=== PATIENT | male | born 1960 | race Caucasian/White ===

== ENCOUNTER 2016-09-29 15:06 | Emergency (ER) | payer SELFPAY ==
[~2016-09-29] VITALS: Ht 182.9 cm; Wt 64.0 kg
[~2016-09-29 15:06] MED LIST: BACT800T5 PO; CEPH500C PO
[2016-09-29 15:08] VITALS: BP 118/71; PULSE 96; RESP 20; TEMP 98.3; O2SAT 99
--- NOTE | 2016-09-29 15:12 | PD ---
Physical Exam Time Seen by Provider: 15:11 Narrative 55 y/o male here with a painful cystic lesion in the suprapubic region for 1 week. Vital signs reviewed. Seen at triage desk. Awaiting bed placement. Data Data Last Documented VS Vital Signs Date Time Temp Pulse Resp B/P Pulse Ox O2 Delivery O2 Flow Rate FiO2 09/29/16 15:08 98.3 96 20 118/71 99 Room Air [facility] Medical Record Reviewed: Yes Supervised Visit with IZABELLA: Edward Coello Sep 29, 2016 15:12
== END 2016-09-29 17:25 | disposition left against medical advice (07) ==
LOC: NED 15:06
DX: L98.9 Disorder of the skin and subcutaneous tissue, unspecified (principal)
CPT/HCPCS: 99281

== ENCOUNTER 2016-10-01 15:02 | Emergency (ER) | payer OTHER ==
[~2016-10-01] VITALS: Ht 167.6 cm; Wt 70.0 kg
[2016-10-01] MEDS ORDERED: LORazepam 2 MG/ML VIAL IM ONE (15:15)
[2016-10-01] MEDS ORDERED: MIDAZOLAM HCL 2 MG/2 ML VIAL IM ONE (15:15)
--- NOTE | 2016-10-01 15:22 | PD ---
HPI Chief Complaint: Psychiatric Symptoms Time Seen by Provider: 15:22 Travel History International Travel<30 days: No Contact w/Intl Traveler<30days: No History of Present Illness HPI 55-year-old male is brought to the emergency department under Mccartney act form suicidal ideations. Per the Mccartney act report the patient cut himself on his left arm and stated that he wanted to . The patient states that his landlord is "getting screwed over by everybody" and this caused him to be very upset which is why he cut himself. The patient is very combative and aggressive and is restrained. Limited history is obtained from the patient. He admits to drinking alcohol daily, states he's had 8 beers today. Denies drug use. PFSH Past Medical History Anxiety: Yes Depression: Yes COPD: Yes (Reports patient.) Diminished Hearing: No Psychiatric: Yes (ANXIETY, DEPRESSION) Immunizations Current: Yes Past Surgical History Eye Surgery: Yes (STRABISMUS CORRECTION) Other Surgery: Yes (partial finger amputations on the left hand) Family History Family Hypercholesterolemia: Yes Social History Alcohol Use: Yes (12 PACK DAY) Tobacco Use: Yes (2PPD + CIGARS) Substance Use: Yes Allergies-Medications (Allergen,Severity, Reaction): Coded Allergies: Codeine (Verified Adverse Reaction, Unknown, Nausea/Vomiting, 09/29/16) MRSA (arm) 09/23/16 Reported Meds & Prescriptions Reported Meds & Active Scripts Active Cephalexin 500 Mg Cap 500 Mg PO Q6H Bactrim DS (Sulfamethoxazole-Trimethoprim) 800-160 Mg Tab 1 Tab PO BID Review of Systems ROS Limitations: Combative, Psychotic Except as stated in HPI: all other systems reviewed are Neg Physical Exam Exam Limitations: Combative, Psychotic Narrative GENERAL: Well-nourished and well-developed patient in no acute distress however is combative. SKIN: Warm and dry. 3 cm laceration to left lateral upper arm. HEAD: Normocephalic and atraumatic. EYES: No injection, drainage, or hyphema noted. PERRLA. EOMI. ENT: No nasal drainage noted. Oropharynx is clear. NECK: Supple and the trachea is midline. CARDIOVASCULAR: Regular rate and rhythm. RESPIRATORY: Breath sounds are equal bilaterally with no accessory muscle use, wheezing, rhonchi, or crackles. GASTROINTESTINAL: Abdomen is soft, non-tender, and nondistended. MUSCULOSKELETAL: No obvious deformities, swelling, cyanosis, or ecchymosis is present throughout the upper and lower extremities. NEUROLOGICAL: Awake, alert, and oriented. Normal speech. Cranial nerves are grossly intact. Data Data Last Documented VS Vital Signs Date Time Temp Pulse Resp B/P Pulse Ox O2 Delivery O2 Flow Rate FiO2 10/01/16 19:46 98.1 81 18 139/95 97 Room Air 10/01/16 15:37 2 Orders Complete Blood Count With Diff (10/01/16 15:14) Comprehensive Metabolic Panel (10/01/16 15:14) Iv Access Insert/Monitor (10/01/16 15:14) Psych Screen (10/01/16 15:14) Drug Screen, Random Urine (10/01/16 15:14) Alcohol (Ethanol) (10/01/16 15:14) Salicylates (Aspirin) (10/01/16 15:14) Tylenol (Acetaminophen) (10/01/16 15:14) Midazolam Inj (Versed Inj) (10/01/16 15:15) Lorazepam Inj (Ativan Inj) (10/01/16 15:15) Ecg Monitoring (10/01/16 15:14) Oximetry (10/01/16 15:14) Lidocai-Epi 1%-1:100,000 Inj (Xylocaine- (10/01/16 15:45) Olanzapine Inj (Zyprexa Inj) (10/01/16 18:00) Diet Regular Basic (10/02/16 Breakfast) Alcohol Withdrawal Asmt-Ciwa ONCE (10/01/16 19:54) Flumazenil Inj (Romazicon Inj) (10/01/16 20:00) Lorazepam (Ativan) (10/01/16 20:00) Lorazepam Inj (Ativan Inj) (10/01/16 20:00) Lorazepam (Ativan) (10/01/16 20:00) Lorazepam Inj (Ativan Inj) (10/01/16 20:00) Lorazepam Inj (Ativan Inj) (10/01/16 20:00) Lorazepam Inj (Ativan Inj) (10/01/16 20:00) Labs Laboratory Tests Test 10/01/16 15:45 White Blood Count 15.4 TH/MM3 Red Blood Count 5.11 MIL/MM3 Hemoglobin 15.0 GM/DL Hematocrit 45.8 % Mean Corpuscular Volume 89.6 FL Mean Corpuscular Hemoglobin 29.4 PG Mean Corpuscular Hemoglobin 32.8 % Concent Red Cell Distribution Width 14.6 % Platelet Count 350 TH/MM3 Mean Platelet Volume 8.1 FL Neutrophils (%) (Auto) 51.7 % Lymphocytes (%) (Auto) 43.2 % Monocytes (%) (Auto) 3.1 % Eosinophils (%) (Auto) 1.3 % Basophils (%) (Auto) 0.7 % Neutrophils # (Auto) 8.0 TH/MM3 Lymphocytes # (Auto) 6.7 TH/MM3 Monocytes # (Auto) 0.5 TH/MM3 Eosinophils # (Auto) 0.2 TH/MM3 Basophils # (Auto) 0.1 TH/MM3 CBC Comment AUTO DIFF Differential Total Cells 100 Counted Neutrophils % (Manual) 52 % Band Neutrophils % 1 % Lymphocytes % 42 % Monocytes % 2 % Eosinophils % 2 % Basophils % 1 % Neutrophils # (Manual) 8.2 TH/MM3 Differential Comment FINAL DIFF MANUAL Platelet Estimate NORMAL Platelet Morphology Comment NORMAL Sodium Level 142 MEQ/L Potassium Level 4.3 MEQ/L Chloride Level 110 MEQ/L Carbon Dioxide Level 18.8 MEQ/L Anion Gap 13 MEQ/L Blood Urea Nitrogen 6 MG/DL Creatinine 0.92 MG/DL Estimat Glomerular Filtration 86 ML/MIN Rate Random Glucose 79 MG/DL Calcium Level 9.2 MG/DL Total Bilirubin 0.2 MG/DL Aspartate Amino Transf 31 U/L (AST/SGOT) Alanine Aminotransferase 27 U/L (ALT/SGPT) Alkaline Phosphatase 66 U/L Total Protein 8.1 GM/DL Albumin 4.4 GM/DL Salicylates Level 5.5 MG/DL Acetaminophen Level LESS THAN 2.0 MCG/ML Ethyl Alcohol Level 300 MG/DL [facility] Medical Decision Making Medical Screen Exam Complete: Yes Emergency Medical Condition: Yes Differential Diagnosis Differential: Depression versus adjustment reaction versus anxiety versus PTSD versus psychosis NOS versus mood disorder NOS versus substance induced mood disorder versus ODD versus adjustment reaction versus schizophrenia versus bipolar disorder versus schizoaffective versus electrolyte abnormality Narrative Course Patient presents under a Mccartney act. Vital signs within normal limits. Patient has a small self-inflicted laceration to his left upper arm. Psych screen has been ordered. Patient is restrained as he is combative. Per the recommendation of my attending physician he is administered Versed 2 mg IM and Ativan 2 mg IM. CBC shows elevated white blood cell count, likely stress reaction. CMP is unremarkable. Salicylate and Tylenol levels within normal limits. EtOH is 300. Laceration repairs performed, see procedure narrative. The patient is medically clear for psychiatric evaluation and disposition. I discussed the case with my attending physician Dr. Pearson who is aware of the patients history, physical examination findings, and treatment plan. Procedures Procedure Narrative LACERATION LOCATION: left arm LENGTH: 3 cm NUMBER OF STITCHES/WENCESLAO: 8 wenceslao REPAIR: The area of the laceration was prepped with Betadine and sterilely draped. The laceration was infiltrated with 1% lidocaine with epinephrine. The wound was copiously irrigated and explored without evidence of foreign body , tendon injury or neurovascular injury. The wound was closed using wenceslao. This was a single layer repair. A sterile dressing was applied. The patient was advised to keep the dressing clean and dry. Patient tolerated the procedure well. Diagnosis Primary Impression: Alcohol-induced mood disorder Additional Impressions: Self-mutilation Arm laceration Qualified Code: S41.112A - Arm laceration, left, initial encounter Additional Instructions: Have wenceslao removed in 7 days. Marge Saleh Oct 01, 2016 15:22
[2016-10-01 15:35] VITALS: BP 185/88; PULSE 76; RESP 18; TEMP 98.2; O2SAT 99
[2016-10-01 15:37] VITALS: O2SAT 97
[2016-10-01] MEDS ORDERED: LIDOCAINE 1%/EPINEPHrine 1:100,000 SOLN 20 ML VIAL INFIL ONE (15:45)
[2016-10-01 16:12] LABS: BASOPHIL # 0.1 TH/MM3 (0-0.2); BASOPHIL % 0.7 % (0.0-2.0); EOSINOPHIL # 0.2 TH/MM3 (0-0.4); EOSINOPHIL % 1.3 % (0.0-4.0); HEMATOCRIT 45.8 % (39.0-51.0); LYMPH % 43.2 % (9.0-44.0); LYMPHOCYTE # 6.7 TH/MM3 (1.0-4.8); MEAN CELL VOLUME 89.6 FL (80.0-100.0); MEAN CORPUSCULAR HEMOGLOBIN 29.4 PG (27.0-34.0); MEAN CORPUSCULAR HGB CONC 32.8 % (32.0-36.0); MONO % 3.1 % (0.0-8.0); NEUT % 51.7 % (16.0-70.0); PLATELET COUNT 350 TH/MM3 (150-450); RED BLOOD COUNT 5.11 MIL/MM3 (4.50-5.90); RED CELL DISTRIBUTION WIDTH 14.6 % (11.6-17.2); WHITE BLOOD COUNT 15.4 TH/MM3 (4.0-11.0)
[2016-10-01 16:14] LABS: HEMO FLAGS AUTO DIFF
[2016-10-01 16:25] LABS: ALKALINE PHOSPHATASE 66 U/L (45-117); TOTAL BILIRUBIN ADULT 0.2 MG/DL (0.2-1.0)
[2016-10-01 16:37] LABS: ALT (GPT) 27 U/L (12-78); ANION GAP 13 MEQ/L (5-15); AST (GOT) 31 U/L (15-37); BICARBONATE 18.8 MEQ/L (21.0-32.0); BLOOD UREA NITROGEN 6 MG/DL (7-18); CHLORIDE 110 MEQ/L (98-107); GLOMERULAR FILTRATION RATE 86 ML/MIN (>89); POTASSIUM 4.3 MEQ/L (3.5-5.1); SODIUM (NA) 142 MEQ/L (136-145)
[2016-10-01 16:38] LABS: ACETAMINOPHEN LESS THAN 2.0 MCG/ML (10.0-30.0)
[2016-10-01 16:50] LABS: BANDS 1 % (0-6); BASOPHILS 1 % (0-2); EOSINOPHILS 2 % (0-4); NEUTROPHIL # MANUAL DIFF 8.2 TH/MM3 (1.8-7.7); POLYS (SEG NEUTROPHILS) 52 % (16-70); WBC DIFF SAMPLE 100
[2016-10-01 16:51] LABS: SCAN/DIFF FINAL DIFF MANUAL
[2016-10-01 16:52] LABS: PLATELET ESTIMATE SMEAR NORMAL (NORMAL); PLATELET MORPHOLOGY NORMAL (NORMAL)
[2016-10-01] MEDS ORDERED: OLANZapine IM 10 MG VIAL IM ONE (18:00)
[2016-10-01 19:04] VITALS: BP 141/67; PULSE 62; RESP 18; O2SAT 98
[2016-10-01 19:46] VITALS: BP 139/95; PULSE 81; RESP 18; TEMP 98.1; O2SAT 97
[2016-10-01] MEDS ORDERED: LORazepam 2 MG/ML VIAL IV PUSH PRN ×4 (20:00)
[2016-10-01] MEDS ORDERED: FLUMAZENIL 0.5 MG/5 ML VIAL IV PUSH PRN (20:00)
[2016-10-01] MEDS ORDERED: LORazepam 2 MG TAB PO PRN (20:00)
[2016-10-01] MEDS ORDERED: LORazepam 1 MG TAB PO PRN (20:00)
[2016-10-01 21:15] LABS: AMPHETAMINE, URINE NEG (NEG); BARBITURATES, URINE NEG (NEG); COCAINE, URINE NEG (NEG)
[2016-10-01 22:05] VITALS: BP 115/73; PULSE 100; RESP 18; O2SAT 99
[2016-10-02 06:08] VITALS: BP 148/80; PULSE 79; RESP 19; O2SAT 97
--- NOTE | 2016-10-02 12:25 | PD ---
History of Present Illness Chief Complaint: Psychiatric Symptoms Time Seen by Provider: 12:00 Travel History International Travel<30 Days: No Contact w/Intl Traveler<30days: No Known affected area: No Legal Status Legal Status: Mccartney Act Mccartney Act Signed By: Jeremy Curtis History of Present Illness: History of Present Illness HPI 55-year-old male with a self reported history of anxiety and depression, personality disorder, hx of self mutilation as well as alcohol abuse who is brought to the emergency department under Mccartney act initiated by RONNI . Per the Mccartney act report the patient cut himself on his left arm and stated that he wanted to . The patient was very combative and aggressive when he arrived and required ETO and restraints . ETOH on admission was 300 and positive toxicology for benzos. Patient was later monitored in J pod and he presented no behavioral concerns and no suicidality. Patient is seen in J pod with nurse Todd. Awake, alert, oriented. He is clinically sober. His speech is clear and logical. There is no kelsie and no hypomania. There is no psychosis. He denies suicidal ideation, intent or plan. States " I was intoxicated and I ran my mouth. I do that . I say what I think. I said something stupid. He denies he cut himself to kill himself and further states " this is body art ". He also tells me that he went to [facility] and was prescribed medication but " I am not taking any medication because I don't need it". PFS Past Medical History Anxiety: Yes Depression: Yes COPD: Yes (Reports patient.) Diminished Hearing: No Psychiatric: Yes (ANXIETY, DEPRESSION) Immunizations Current: Yes Past Surgical History Eye Surgery: Yes (STRABISMUS CORRECTION) Other Surgery: Yes (partial finger amputations on the left hand) Psychiatric History Psychiatric History Hx Psychiatric Treatment: Hx of depression and anxiety AND etoh. Patient with prior inpatient treatment in [place], 2015 and [facility]. Admitted to [facility] in 2012. History of Inpatient Treatment: Yes Guns or firearms in home: No Social History Single male. Homeless. Born in [place]. has been in [place] since 2013. Hx Alcohol Use: Yes (12 PACK DAY) Hx Tobacco Use: Yes (2PPD + CIGARS) Hx Substance Use: Yes (alcohol abuse) Substance Use Type: Alcohol, Marijuana, Nicotine/Cigarettes Other Substances Used: 12 PPD Hx of Substance Use Treatment: Yes Family Psychiatric History Negative Allergies-Medications (Allergen,Severity, Reaction): Coded Allergies: Codeine (Verified Adverse Reaction, Unknown, Nausea/Vomiting, 09/29/16) MRSA (arm) 09/23/16 Reported Meds & Prescriptions Reported Meds & Active Scripts Active Cephalexin 500 Mg Cap 500 Mg PO Q6H Bactrim DS (Sulfamethoxazole-Trimethoprim) 800-160 Mg Tab 1 Tab PO BID Review of Systems Except as stated in HPI: all other systems reviewed are Neg Exam Alert: Yes [place]: Person (ox4) Mood: Agitated, Calm Affect: Appropriate Speech: Clear, Logical Eye Contact: Normal Memory Intact: Comment (No impairmetn) Hallucinations: Other (negative) Delusions: No Suicidal: Ideation (Denies any) Homicidal: Ideation (Deneis any) Insight/Judgement Poor. Poor MDM Medical Decision Making Medical Record Reviewed: Yes Assessment/Plan 55 year old male with hx of substance use who in context of intoxication cut his left arm. At the time the patient verbalized he was suicidal as well as threatened the deputies. At thsi time he is clincially sober and he deneis any suidal or homicidal ideation, intent or plan. he is not imminent risk of hurting self or others although a chronic risk does exist due to his substance abuse. At this time the patient will be released. Psychoeducation is provided. Orders Complete Blood Count With Diff (10/01/16 15:14) Comprehensive Metabolic Panel (10/01/16 15:14) Iv Access Insert/Monitor (10/01/16 15:14) Psych Screen (10/01/16 15:14) Drug Screen, Random Urine (10/01/16 15:14) Alcohol (Ethanol) (10/01/16 15:14) Salicylates (Aspirin) (10/01/16 15:14) Tylenol (Acetaminophen) (10/01/16 15:14) Midazolam Inj (Versed Inj) (10/01/16 15:15) Lorazepam Inj (Ativan Inj) (10/01/16 15:15) Ecg Monitoring (10/01/16 15:14) Oximetry (10/01/16 15:14) Lidocai-Epi 1%-1:100,000 Inj (Xylocaine- (10/01/16 15:45) Olanzapine Inj (Zyprexa Inj) (10/01/16 18:00) Diet Regular Basic (10/02/16 Breakfast) Alcohol Withdrawal Asmt-Ciwa ONCE (10/01/16 19:54) Flumazenil Inj (Romazicon Inj) (10/01/16 20:00) Lorazepam (Ativan) (10/01/16 20:00) Lorazepam Inj (Ativan Inj) (10/01/16 20:00) Lorazepam (Ativan) (10/01/16 20:00) Lorazepam Inj (Ativan Inj) (10/01/16 20:00) Lorazepam Inj (Ativan Inj) (10/01/16 20:00) Lorazepam Inj (Ativan Inj) (10/01/16 20:00) Results Vital Signs Date Time Temp Pulse Resp B/P Pulse Ox O2 Delivery O2 Flow Rate FiO2 10/02/16 06:08 79 19 148/80 97 Room Air 10/01/16 22:05 100 18 115/73 99 Room Air 10/01/16 19:46 98.1 81 18 139/95 97 Room Air 10/01/16 19:04 62 18 141/67 98 Room Air 10/01/16 15:47 18 10/01/16 15:37 97 Nasal Cannula 2 10/01/16 15:35 98.2 76 18 185/88 99 Laboratory Tests Test 10/01/16 10/01/16 15:45 20:05 White Blood Count 15.4 Red Blood Count 5.11 Hemoglobin 15.0 Hematocrit 45.8 Mean Corpuscular Volume 89.6 Mean Corpuscular Hemoglobin 29.4 Mean Corpuscular Hemoglobin 32.8 Concent Red Cell Distribution Width 14.6 Platelet Count 350 Mean Platelet Volume 8.1 Neutrophils (%) (Auto) 51.7 Lymphocytes (%) (Auto) 43.2 Monocytes (%) (Auto) 3.1 Eosinophils (%) (Auto) 1.3 Basophils (%) (Auto) 0.7 Neutrophils # (Auto) 8.0 Lymphocytes # (Auto) 6.7 Monocytes # (Auto) 0.5 Eosinophils # (Auto) 0.2 Basophils # (Auto) 0.1 CBC Comment AUTO DIFF Differential Total Cells 100 Counted Neutrophils % (Manual) 52 Band Neutrophils % 1 Lymphocytes % 42 Monocytes % 2 Eosinophils % 2 Basophils % 1 Neutrophils # (Manual) 8.2 Differential Comment FINAL DIFF MANUAL Platelet Estimate NORMAL Platelet Morphology Comment NORMAL Sodium Level 142 Potassium Level 4.3 Chloride Level 110 Carbon Dioxide Level 18.8 Anion Gap 13 Blood Urea Nitrogen 6 Creatinine 0.92 Estimat Glomerular Filtration 86 Rate Random Glucose 79 Calcium Level 9.2 Total Bilirubin 0.2 Aspartate Amino Transf 31 (AST/SGOT) Alanine Aminotransferase 27 (ALT/SGPT) Alkaline Phosphatase 66 Total Protein 8.1 Albumin 4.4 Salicylates Level 5.5 Acetaminophen Level LESS THAN 2.0 Ethyl Alcohol Level 300 Urine Opiates Screen NEG Urine Barbiturates Screen NEG Urine Amphetamines Screen NEG Urine Benzodiazepines Screen POS Urine Cocaine Screen NEG Urine Cannabinoids Screen NEG Diagnosis Primary Impression: Alcohol-induced mood disorder Additional Impressions: Arm laceration Self-mutilation Additional Instructions: Have wenceslao removed in 7 days. Med/ Other Pt Specific Info: No Meds Exist/No RX given Disposition: 01 DISCHARGE HOME Condition: Stable Problem Qualifiers Additional Impressions: Arm laceration Qualified Code: S41.112A - Arm laceration, left, initial encounter Sunshine Newman [facility] Oct 02, 2016 12:24
== END 2016-10-02 13:21 | disposition home or self-care (01) ==
LOC: NEPD 15:02 → NEPJ 10-02 13:21
DX: S41.112A Laceration without foreign body of left upper arm, initial encounter (principal); F39 Unspecified mood [affective] disorder; F10.129 Alcohol abuse with intoxication, unspecified; F41.9 Anxiety disorder, unspecified; F32.9 Major depressive disorder, single episode, unspecified; J44.9 Chronic obstructive pulmonary disease, unspecified; F17.210 Nicotine dependence, cigarettes, uncomplicated; F17.290 Nicotine dependence, other tobacco product, uncomplicated; X78.9XXA Intentional self-harm by unspecified sharp object, initial encounter
CPT/HCPCS: 12002; 80053; 80307; 85007; 85027; 96372; 99284; J2060

== ENCOUNTER 2016-10-05 03:18 | Inpatient (IN) | payer SELFPAY ==
[~2016-10-05] VITALS: Ht 180.3 cm; Wt 68.3 kg
[2016-10-05] VITALS (10 sets, daily range): BP systolic 99–142; BP diastolic 55–87; PULSE 60–79; RESP 18–20; TEMP 97.9–98.9; O2SAT 96–100
[2016-10-05] MEDS ORDERED: SODIUM CHLORIDE 0.9% FLUSH 10 ML FLUSH IVF PRN (03:30)
--- NOTE | 2016-10-05 03:33 | PD ---
HPI Chief Complaint: intentional overdose Time Seen by Provider: 03:30 Travel History International Travel<30 days: No Contact w/Intl Traveler<30days: No History of Present Illness HPI Patient comes in under a Mccartney act by police for intentional ingestion of Seroquel. Patient states he took twenty-three 300 mg tablets of lithium with the intention to kill himself. Patient states he took a 11 the other night to go to sleep. Patient denies feeling homicidal or suicidal currently. Denies any medical complaints. Denies any chest pain, shortness of breath, nausea, or abdominal pain. PFSH Past Medical History Anxiety: Yes Depression: Yes COPD: Yes (Reports patient.) Diminished Hearing: No Psychiatric: Yes (ANXIETY, DEPRESSION) Immunizations Current: Yes Past Surgical History Eye Surgery: Yes (STRABISMUS CORRECTION) Other Surgery: Yes (partial finger amputations on the left hand) Family History Family Hypercholesterolemia: Yes Social History Alcohol Use: Yes (12 PACK DAY) Tobacco Use: Yes (2PPD + CIGARS) Substance Use: Yes (alcohol abuse) Allergies-Medications (Allergen,Severity, Reaction): Coded Allergies: Codeine (Verified Adverse Reaction, Unknown, Nausea/Vomiting, 09/29/16) MRSA (arm) 09/23/16 Reported Meds & Prescriptions Reported Meds & Active Scripts Active Cephalexin 500 Mg Cap 500 Mg PO Q6H Bactrim DS (Sulfamethoxazole-Trimethoprim) 800-160 Mg Tab 1 Tab PO BID Review of Systems Except as stated in HPI: all other systems reviewed are Neg Physical Exam Narrative GENERAL: Well-developed, under nourished, in no acute distress, and non-ill appearing. SKIN: Focused skin assessment warm and dry. HEAD: Atraumatic. Normocephalic. EYES: Pupils equal and round. EOMI. No scleral icterus. No injection or drainage. ENT: No nasal bleeding or discharge. Mucous membranes pink and moist. NECK: Trachea midline. Supple. No nuclear rigidity. CARDIOVASCULAR: Regular rate and rhythm. No murmur appreciated. RESPIRATORY: No accessory muscle use. No respiratory distress. Clear to auscultation. Breath sounds equal bilaterally. MUSCULOSKELETAL: No obvious deformities. No clubbing. No cyanosis. No edema. Full range of motion. NEUROLOGICAL: Awake and alert. No obvious cranial nerve deficits. Motor grossly within normal limits. Normal speech. PSYCHIATRIC: Appropriate mood and affect; insight and judgment abnormal. Data Data Last Documented VS Vital Signs Date Time Temp Pulse Resp B/P Pulse Ox O2 Delivery O2 Flow Rate FiO2 10/05/16 03:43 97.9 65 20 103/62 98 Orders Complete Blood Count With Diff (10/05/16 03:26) Comprehensive Metabolic Panel (10/05/16 03:26) Electrocardiogram (10/05/16 03:26) Oximetry (10/05/16 03:26) Iv Access Insert/Monitor (10/05/16 03:26) Ecg Monitoring (10/05/16 03:26) Psych Screen (10/05/16 03:26) Sodium Chloride 0.9% Flush (Ns Flush) (10/05/16 03:30) Drug Screen, Random Urine (10/05/16 03:26) Alcohol (Ethanol) (10/05/16 03:26) Salicylates (Aspirin) (10/05/16 03:26) Tylenol (Acetaminophen) (10/05/16 03:26) Call Poison Control (10/05/16 03:26) [place] (Li) (10/05/16 03:37) MDM Medical Decision Making Medical Screen Exam Complete: Yes Emergency Medical Condition: Yes Differential Diagnosis Homicidal, suicidal, intentional overdose, lithium intoxication, other Narrative Course Patient was seen and examined. Initial laboratory studies and EKG were ordered. 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 Patient is transferred to medical pod and care was transferred to Dr. Blake. Please see her documentation for final diagnosis and disposition. Isidro Marie Oct 05, 2016 03:33
[2016-10-05] MEDS ORDERED: LITH300C2 PO (03:57)
[2016-10-05] MEDS ORDERED: SERO100T PO (03:57)
[2016-10-05 04:21] LABS: AUTOMATED NEUTROPHIL # 8.1 TH/MM3 (1.8-7.7); BASOPHIL # 0.1 TH/MM3 (0-0.2); BASOPHIL % 0.8 % (0.0-2.0); EOSINOPHIL # 0.5 TH/MM3 (0-0.4); EOSINOPHIL % 4.3 % (0.0-4.0); HEMATOCRIT 38.7 % (39.0-51.0); HEMO FLAGS DIFF FINAL; LYMPH % 25.1 % (9.0-44.0); LYMPHOCYTE # 3.2 TH/MM3 (1.0-4.8); MEAN CELL VOLUME 89.5 FL (80.0-100.0); MEAN CORPUSCULAR HEMOGLOBIN 30.6 PG (27.0-34.0); MEAN CORPUSCULAR HGB CONC 34.2 % (32.0-36.0); MONO % 6.2 % (0.0-8.0); NEUT % 63.6 % (16.0-70.0); PLATELET COUNT 264 TH/MM3 (150-450); RED BLOOD COUNT 4.32 MIL/MM3 (4.50-5.90); RED CELL DISTRIBUTION WIDTH 14.5 % (11.6-17.2); WHITE BLOOD COUNT 12.7 TH/MM3 (4.0-11.0)
[2016-10-05] MEDS ORDERED: SODIUM CHLOR 0.9% 1000 ML INJ 1,000 ML IV ONE (04:45)
[2016-10-05 04:49] LABS: ALT (GPT) 25 U/L (12-78); ANION GAP 6 MEQ/L (5-15); AST (GOT) 28 U/L (15-37); BICARBONATE 21.7 MEQ/L (21.0-32.0); BLOOD UREA NITROGEN 10 MG/DL (7-18); CHLORIDE 110 MEQ/L (98-107); GLOMERULAR FILTRATION RATE 82 ML/MIN (>89); POTASSIUM 3.6 MEQ/L (3.5-5.1); SODIUM (NA) 138 MEQ/L (136-145)
[2016-10-05 04:52] LABS: ACETAMINOPHEN LESS THAN 2.0 MCG/ML (10.0-30.0); ALKALINE PHOSPHATASE 75 U/L (45-117); TOTAL BILIRUBIN ADULT 0.3 MG/DL (0.2-1.0)
[2016-10-05] MEDS ORDERED: ONDANSETRON HCL 4 MG/2 ML VIAL ONE (05:04)
[2016-10-05] MEDS ORDERED: ONDANSETRON HCL 4 MG/2 ML VIAL IV PUSH ONE (05:45)
[2016-10-05] MEDS ORDERED: LORazepam 2 MG/ML VIAL IV PUSH PRN ×4 (06:00)
[2016-10-05] MEDS ORDERED: BISACODYL 10 MG SUPP RECTAL PRN (06:00)
[2016-10-05] MEDS ORDERED: ACETAMINOPHEN 325 MG TAB PO PRN ×2 (06:00→12:45)
[2016-10-05] MEDS ORDERED: ONDANSETRON HCL 4 MG/2 ML VIAL IVP PRN (06:00)
[2016-10-05] MEDS ORDERED: SODIUM CHLORIDE 0.9% FLUSH 10 ML FLUSH IV FLUSH PRN ×2 (06:00→12:45)
[2016-10-05] MEDS ORDERED: SENNOSIDES 8.6 MG TAB PO PRN (06:00)
[2016-10-05] MEDS ORDERED: MAGNESIUM HYDROXIDE SUSP 30 ML CUP PO PRN (06:00)
[2016-10-05] MEDS ORDERED: LACTULOSE SYRUP 20 GM/30 ML CUP PO PRN (06:00)
[2016-10-05] MEDS ORDERED: LORazepam 1 MG TAB PO PRN (06:00)
[2016-10-05] MEDS ORDERED: LORazepam 2 MG TAB PO PRN (06:00)
[2016-10-05] MEDS ORDERED: FLUMAZENIL 0.5 MG/5 ML VIAL IV PUSH PRN (06:00)
[2016-10-05] MEDS ORDERED: HALOPERIDOL LACTATE 5 MG/ML AMP IM PRN (06:00)
--- NOTE | 2016-10-05 06:01 | PD ---
Data Data Last Documented VS Vital Signs Date Time Temp Pulse Resp B/P Pulse Ox O2 Delivery O2 Flow Rate FiO2 10/05/16 05:18 79 18 99/62 99 Room Air 10/05/16 03:43 97.9 Orders Complete Blood Count With Diff (10/05/16 03:26) Comprehensive Metabolic Panel (10/05/16 03:26) Electrocardiogram (10/05/16 03:26) Oximetry (10/05/16 03:26) Iv Access Insert/Monitor (10/05/16 03:26) Ecg Monitoring (10/05/16 03:26) Psych Screen (10/05/16 03:26) Sodium Chloride 0.9% Flush (Ns Flush) (10/05/16 03:30) Drug Screen, Random Urine (10/05/16 03:26) Alcohol (Ethanol) (10/05/16 03:26) Salicylates (Aspirin) (10/05/16 03:26) Tylenol (Acetaminophen) (10/05/16 03:26) Call Poison Control (10/05/16 03:26) [place] (Li) (10/05/16 03:37) Sodium Chlor 0.9% 1000 Ml Inj (Ns 1000 M (10/05/16 04:45) Ondansetron Inj (Zofran Inj) (10/05/16 05:04) Ondansetron Inj (Zofran Inj) (10/05/16 05:45) Admit Order (Ed Use Only) (10/05/16 05:53) Labs Laboratory Tests Test 10/05/16 04:01 White Blood Count 12.7 TH/MM3 Red Blood Count 4.32 MIL/MM3 Hemoglobin 13.2 GM/DL Hematocrit 38.7 % Mean Corpuscular Volume 89.5 FL Mean Corpuscular Hemoglobin 30.6 PG Mean Corpuscular Hemoglobin 34.2 % Concent Red Cell Distribution Width 14.5 % Platelet Count 264 TH/MM3 Mean Platelet Volume 7.9 FL Neutrophils (%) (Auto) 63.6 % Lymphocytes (%) (Auto) 25.1 % Monocytes (%) (Auto) 6.2 % Eosinophils (%) (Auto) 4.3 % Basophils (%) (Auto) 0.8 % Neutrophils # (Auto) 8.1 TH/MM3 Lymphocytes # (Auto) 3.2 TH/MM3 Monocytes # (Auto) 0.8 TH/MM3 Eosinophils # (Auto) 0.5 TH/MM3 Basophils # (Auto) 0.1 TH/MM3 CBC Comment DIFF FINAL Differential Comment Sodium Level 138 MEQ/L Potassium Level 3.6 MEQ/L Chloride Level 110 MEQ/L Carbon Dioxide Level 21.7 MEQ/L Anion Gap 6 MEQ/L Blood Urea Nitrogen 10 MG/DL Creatinine 0.96 MG/DL Estimat Glomerular Filtration 82 ML/MIN Rate Random Glucose 93 MG/DL Calcium Level 8.6 MG/DL Total Bilirubin 0.3 MG/DL Aspartate Amino Transf 28 U/L (AST/SGOT) Alanine Aminotransferase 25 U/L (ALT/SGPT) Alkaline Phosphatase 75 U/L Total Protein 6.6 GM/DL Albumin 3.4 GM/DL Salicylates Level 4.7 MG/DL Acetaminophen Level LESS THAN 2.0 MCG/ML [place] Level 2.8 MEQ/L Ethyl Alcohol Level 116 MG/DL MDM Supervised Visit with IZABELLA: Yes Narrative Course I, Dr. Blake, have reviewed the advance practice practioner's documentation and am in agreement, met with the patient face to face, made the diagnosis, and the medical decision making was done by me. *My assessment and Findings: 55-year-old male here under Mccartney act after intentional overdose. Sometime this evening, exactly unclear on the time patient reportedly took 23 tablets of lithium and an attempt to kill himself. Patient has on his person a bottle of lithium 300 mg #60, this bottle is empty. He also has a bottle of Seroquel 100 mg #60 with 23 tablets missing. Patient states he feels slightly nauseous, but denies any abdominal pain, diarrhea. Neurologically he is intact and he denies any chest pain, shortness of breath or palpitations. Concern for lithium overdose, Seroquel overdose, ingestion, alcohol intoxication, arrhythmia, seizure, suicide attempt. Twelve-lead EKG shows sinus rhythm without notable ST or T-wave abnormalities and normal intervals. QRS 84, QTC 456. Laboratory workup notable for blood alcohol level 116. [place] level elevated at 2.8. At this time again he does not have any evidence of clinical intoxication except nausea. He was given Zofran to help with this. Poison control consulted and agrees with every 4 hours EKG, lithium level, BMP use until downtrending 2. Patient will be admitted for further management and ultimate psychiatry consultation. Critical Care Narrative Aggregate critical care time was 40 minutes. Time to perform other separately billable procedures was not included in the critical care time. My time did not include minutes spent treating any other patients simultaneously or on activities that did not directly contribute to the patient's treatment. The services I provided to this patient were to treat and/or prevent clinically significant deterioration that could result in: Neurologic decompensation, cardiopulmonary decompensation, , disability I provided critical care services requiring my management, as noted below: Chart data review, documentation time, medication orders and management, vital sign assessments/reviewing monitor data, ordering and reviewing lab tests, ordering and interpreting/reviewing x-rays and diagnostic studies, care of the patient and discussion of the patient with the admitting physicians. Diagnosis Primary Impression: Intentional lithium overdose Qualified Code: T56.892A - Intentional lithium overdose, initial encounter Additional Impressions: Alcohol intoxication Qualified Code: F10.920 - Alcohol intoxication, uncomplicated Suicide attempt Admitting Information Admitting Physician Requests: it Ayesha Blake MD Oct 05, 2016 06:01
[2016-10-05 06:06] LABS: AMPHETAMINE, URINE NEG (NEG); BARBITURATES, URINE NEG (NEG); COCAINE, URINE NEG (NEG)
--- NOTE | 2016-10-05 06:20 | HHI.HP ---
HPI Service [facility] Primary Care Physician Unknown Admission Diagnosis lithium overdose, alcohol intoxication Diagnoses: (1) Intentional lithium overdose Diagnosis: Principal (2) Suicide attempt Diagnosis: Principal (3) Alcohol abuse Diagnosis: Principal (4) Leukocytosis Diagnosis: Principal (5) Dehydration Diagnosis: Principal Travel History International Travel<30 Days: No Contact w/Intl Traveler <30 Da: No Traveled to Known Affected Are: No History of Present Illness This is a 55-year-old male with PMH of Anxiety, Depression, COPD, Alcohol Abuse and Tobacco Abuse who was brought to the ER under [place] secondary to intentional lithium overdose in suicide attempt. Per patient, he took approximately 23 tablets of [place] 300mg at approx 11pm last evening. Also found to have missing Seroquel 100mg tablets, however denies ingestion. No c/o chest pain or SOB. On arrival, BP 103/62, HR 65, O2 sat 98% on RA, Afebrile. Recent ER presentation on 10/01/16 w/ suicidal ideation and self mutilation under [place], s/p eval by Psych w/ d/c home. Returns now w/ intentional ingestion. WBC 12.7. Chemistry essentially unremarkable except for GFR 82. Urine Drug Screen pending. [place] 2.8. Alcohol 116. Poison Control contacted , recommended q4h [place] levels. Review of Systems Except as stated in HPI: all other systems reviewed are Neg ROS: 14 point review of systems otherwise negative. Past Family Social History Past Medical History PMH: Anxiety, Depression, COPD, Alcohol Abuse and Tobacco Abuse Past Surgical History PAST SURGICAL HISTORY: Partial Finger Amputation Left Hand Allergies: Coded Allergies: Codeine (Verified Adverse Reaction, Unknown, Nausea/Vomiting, 10/05/16) MRSA (arm) 09/23/16 Family History PAST FAMILY HISTORY: Reviewed. No h/o DM or CAD Social History PAST SOCIAL HISTORY: Drinks 12-14 beers/day. Smokes 2ppd. Negative for drugs. Physical Exam Vital Signs Vital Signs Date Time Temp Pulse Resp B/P Pulse Ox O2 Delivery O2 Flow Rate FiO2 10/05/16 05:18 79 18 99/62 99 Room Air 10/05/16 03:43 97.9 65 20 103/62 98 Physical Exam PE: GENERAL: Middle-aged white male in no acute distress. HEENT: PERRLA, EOMI. No scleral icterus or conjunctival pallor. No lid lag or facial droop. CARDIOVASCULAR: Regular rate and rhythm. No obvious murmurs to auscultation. No chest tenderness to palpation. RESPIRATORY: No obvious rhonchi or wheezing. Clear to auscultation. Breath sounds equal bilaterally. GASTROINTESTINAL: Abdomen soft, non-tender, nondistended. BS normal. MUSCULOSKELETAL: Extremities without clubbing, cyanosis, or edema. No obvious deformities. NEUROLOGICAL: Awake, alert and oriented x4. No focal neurologic deficits. Moving both upper and lower extremities spontaneously. Laboratory Laboratory Tests Test 10/05/16 04:01 White Blood Count 12.7 Red Blood Count 4.32 Hemoglobin 13.2 Hematocrit 38.7 Mean Corpuscular Volume 89.5 Mean Corpuscular Hemoglobin 30.6 Mean Corpuscular Hemoglobin 34.2 Concent Red Cell Distribution Width 14.5 Platelet Count 264 Mean Platelet Volume 7.9 Neutrophils (%) (Auto) 63.6 Lymphocytes (%) (Auto) 25.1 Monocytes (%) (Auto) 6.2 Eosinophils (%) (Auto) 4.3 Basophils (%) (Auto) 0.8 Neutrophils # (Auto) 8.1 Lymphocytes # (Auto) 3.2 Monocytes # (Auto) 0.8 Eosinophils # (Auto) 0.5 Basophils # (Auto) 0.1 CBC Comment DIFF FINAL Differential Comment Sodium Level 138 Potassium Level 3.6 Chloride Level 110 Carbon Dioxide Level 21.7 Anion Gap 6 Blood Urea Nitrogen 10 Creatinine 0.96 Estimat Glomerular Filtration 82 Rate Random Glucose 93 Calcium Level 8.6 Total Bilirubin 0.3 Aspartate Amino Transf 28 (AST/SGOT) Alanine Aminotransferase 25 (ALT/SGPT) Alkaline Phosphatase 75 Total Protein 6.6 Albumin 3.4 Salicylates Level 4.7 Acetaminophen Level LESS THAN 2.0 [place] Level 2.8 Ethyl Alcohol Level 116 Result Diagram: 10/05/1640010/05/16400 Assessment and Plan Problem List: (1) Intentional lithium overdose ICD Code: T56.892A Status: Acute (2) Suicide attempt ICD Code: T14.91 Status: Acute (3) Leukocytosis ICD Code: D72.829 Status: Acute (4) Dehydration ICD Code: E86.0 Status: Acute (5) Alcohol abuse ICD Code: F10.10 Status: Acute (6) Tobacco abuse ICD Code: Z72.0 Status: Acute Assessment and Plan A/P: 1. Intentional [place] Overdose: reports taking 23 tablets of [place] 300mg at approx 11pm last evening, [place] 2.8. EKG w/ no acute changes. Poison Control contacted by ER physician, recommended q4h [place] levels, ordered. Telemetry. 2. Suicide Attempt: Intentional OD in Suicide Attempt, currently under [place]. Recent ER presentation 10/01/16 w/ Suicidal Ideation and Self Mutilation under [place], s/p eval by Psych w/ d/c home. Sitter, Consult Psych for further eval. 3. Leukocytosis: WBC 12.7. No evidence of infection. Will recheck labs in am. 4. Dehydration: GFR 82, BUN/Creatinine normal. IVF for hydration, repeat labs in am. 5. Alcohol Abuse: w/ Acute Alcohol Intoxication. Alcohol 116. Drinks 12-14 beers/day. High risk for withdrawal, CIWA, Seizure Precautions, MVT/Thiamine/ Folate replacement. 6. Tobacco Abuse: Pt counselled. NicoDerm prn if needed. 7. DVT Prophylaxis: SCD/Teds. 8. Social work for d/c planning as needed. 9. Case discussed w/ ER physician at length. Physician Certification 2 Midnight Certification Type: Admission for Inpatient Services Order for Inpatient Services The services are ordered in accordance with Medicare regulations or non- Medicare payer requirements, as applicable. In the case of services not specified as inpatient-only, they are appropriately provided as inpatient services in accordance with the 2-midnight benchmark. Estimated LOS (days): 2 days is the estimated time the patient will need to remain in the hospital, assuming treatment plan goals are met and no additional complications. Post-Hospital Plan: Not yet determined Problem Qualifiers (1) Intentional lithium overdose: Qualified Code: T56.892A - Intentional lithium overdose, initial encounter Silvia Espitia MD Oct 05, 2016 06:20
[2016-10-05] MEDS: SODIUM CHLOR 0.9% 1000 ML INJ 1,000 ML IV SCH ×2 (06:23→20:38)
[2016-10-05] MEDS: THIAMINE HCL 100 MG TAB PO SCH (09:32)
[2016-10-05] MEDS: MULTIVITAMINS/MINERALS THERAPEUTIC TAB PO SCH (09:32)
[2016-10-05] MEDS: FOLIC ACID 1 MG TAB PO SCH (09:33)
[2016-10-05] MEDS: DOCUSATE SODIUM 50 MG/SENNA 8.6 MG TAB PO SCH ×2 (09:33→20:17)
[2016-10-05] MEDS: SODIUM CHLORIDE 0.9% FLUSH 10 ML FLUSH IV FLUSH SCH ×2 (09:34→20:17)
--- NOTE | 2016-10-05 11:54 | HHI.PR ---
Subjective Remarks Follow-up lithium toxicity. Patient lethargic having nausea and loose stools. I was called urgently secondary to lithium level of 4.6. Portion control as recommended emergent hemodialysis which patient agrees. Currently he is not suicidal. Discussed with RN. Also discussed with nephrology who agrees with current management. Also discussed with critical care medicine who graciously oblige to place a Vas-Cath for hemodialysis. He also shows me left arm sutured wound and right scrotal swelling. He was diagnosed with MRSA wound infection and was not able to take prescribed Bactrim. Objective Vitals Vital Signs Date Time Temp Pulse Resp B/P Pulse Ox O2 Delivery O2 Flow Rate FiO2 10/05/16 07:12 80 18 10/05/16 07:07 98.2 70 18 120/64 100 Room Air 10/05/16 05:18 79 18 99/62 99 Room Air 10/05/16 03:43 97.9 65 20 103/62 98 Result Diagram: 10/05/16 0401 10/05/16 0401 Imaging Repeat EKG tracing interpreted by me with sinus rhythm no QT prolongation and no arrhythmias Objective Remarks GENERAL: Well-developed, well-nourished patient who is critically ill SKIN: Warm and dry. HEAD: Atraumatic. Normocephalic. EYES: Pupils equal and round. No scleral icterus. No injection or drainage. ENT: No nasal bleeding or discharge. Mucous membranes pink and moist. NECK: Trachea midline. No JVD. CARDIOVASCULAR: Regular rate and rhythm. RESPIRATORY: No accessory muscle use. Clear to auscultation. Breath sounds equal bilaterally. GASTROINTESTINAL: Abdomen soft, non-tender, nondistended. MUSCULOSKELETAL: Extremities without clubbing, cyanosis, or edema. No obvious deformities. Stapled wound left outer arm slightly swollen but no redness no discharge NEUROLOGICAL: Lethargic. No obvious cranial nerve deficits. Motor grossly within normal limits. Five out of 5 muscle strength in the arms and legs. Normal speech. A/P Problem List: (1) Intentional lithium overdose ICD Code: T56.892A Status: Acute (2) Suicide attempt ICD Code: T14.91 Status: Acute (3) Leukocytosis ICD Code: D72.829 Status: Acute (4) Dehydration ICD Code: E86.0 Status: Acute (5) Alcohol abuse ICD Code: F10.10 Status: Acute (6) Tobacco abuse ICD Code: Z72.0 Status: Acute Assessment and Plan Intentional [place] Overdose: reports taking 23 tablets of [place] 300mg at approx 11pm 10/04, [place] 2.8. EKG w/ no acute changes. Poison Control contacted by ER physician, recommended q4h [place] levels, ordered. Telemetry. 10/05 patient with increasing lithium level of 4.6 with symptoms of nausea, loose stools and lethargy. Poison control recommends emergent hemodialysis which patient agrees. Case discussed with nephrology and critical care medicine and will proceed with Vas-Cath placement for emergent hemodialysis. Keep patient nothing by mouth. Continue IV fluids, neuro checks and monitoring of lithium level. He'll be transferred to ICU Suicide Attempt: Intentional OD in Suicide Attempt, currently under [place]. Recent ER presentation 10/01/16 w/ Suicidal Ideation and Self Mutilation under [place], s/p eval by Psych w/ d/c home. Sitter, Consult Psych for further eval. Leukocytosis: WBC 12.7. Patient has self-inflicted wound left forearm which was repaired however culture grew MRSA. He also has right scrotal furuncle. Start Bactrim, wound care and continue to monitor. Will recheck labs in am. Dehydration: GFR 82, BUN/Creatinine normal. IVF for hydration, repeat labs in am. Alcohol Abuse: w/ Acute Alcohol Intoxication. Alcohol 116. Drinks 12-14 beers /day. High risk for withdrawal, CIWA, Seizure Precautions, MVT/Thiamine/Folate replacement. Tobacco Abuse: Pt counselled. NicoDerm prn if needed. DVT Prophylaxis: SCD/Teds. Discharge Planning He is critically ill that without emergent intervention, patient will deteriorate resulting to multiorgan failure and . Transfer to ICU. Critical care time spent 35 minutes Problem Qualifiers (1) Intentional lithium overdose: Qualified Code: T56.892A - Intentional lithium overdose, initial encounter Gio Benoit MD Oct 05, 2016 11:54
[2016-10-05] MEDS: SULFAMETHOXAZOLE-TRIMETHOPRIM DS 800-160 MG TAB PO SCH ×2 (12:00→20:17)
[2016-10-05] MEDS: MUPIROCIN 2% CREAM 15 GM TOPICAL SCH ×4 (12:00→20:39)
--- NOTE | 2016-10-05 12:38 | EKG ---
Date Performed: 10/05/2016 Time Performed: 03:37:43 PTAGE: 55 years EKG: Sinus rhythm NORMAL ECG INTERPRETATION BASED ON A DEFAULT AGE OF 42 YEARS NO PREVIOUS TRACING DOCTOR: Akhil Medeiros Interpretating Date/Time 10/05/2016 12:34:07
[2016-10-05] MEDS ORDERED: SODIUM CHLOR 0.9% 1000 ML INJ 1,000 ML IV PRN ×3 (12:42)
[2016-10-05] MEDS ORDERED: diphenhydrAMINE HCL 25 MG CAP PO PRN (12:45)
[2016-10-05] MEDS ORDERED: MANNITOL 12.5 GM/50 ML VIAL IV PRN (12:45)
[2016-10-05] MEDS ORDERED: HEPARIN SODIUM - IV 10,000 UNITS/10 ML VIAL PRN (12:45)
[2016-10-05] MEDS ORDERED: GENTAMICIN SULFATE (DIALYSIS USE ONLY) 20 MG/2 ML VIAL IV PRN (12:45)
[2016-10-05] MEDS ORDERED: cloNIDine HCL 0.1 MG TAB PO PRN (12:45)
[2016-10-05] MEDS ORDERED: ALBUMIN HUMAN 25% 25 GM/100 ML BAGP IV PRN (12:45)
[2016-10-05] MEDS ORDERED: GELATIN 12 MM/7 MM FOAM TOP PRN (12:45)
[2016-10-05] MEDS ORDERED: NITROGLYCERIN 0.4 MG SL 25 TABS/BTL SL PRN (12:45)
[2016-10-05] MEDS ORDERED: ONDANSETRON HCL 4 MG/2 ML VIAL IV PRN (12:45)
--- NOTE | 2016-10-05 12:53 | PD.CONS ---
HPI Service Nephrology Consult Requested By Dr. Benoit Reason for Consult [place] overdose Primary Care Physician Unknown History of Present Illness Patient is a 55-year-old white male with history of depression, anxiety, alcohol abuse then been admitted after consuming 23 lithium tablets he states that he took 11 lithium tablets day before as well as he was feeling depressed and wanted to end his life, he is having some nausea vomiting and diarrhea, he said he had some tremors, he is alert and responding to questions, his lithium levels went up from 2.8-4.6 today. Review of Systems Constitutional: COMPLAINS OF: Fatigue Endocrine: COMPLAINS OF: Polydipsia Gastrointestinal: COMPLAINS OF: Diarrhea, Nausea, Vomiting Neurologic: COMPLAINS OF: Tremor Psychiatric: COMPLAINS OF: Anxiety, Confusion, Depression Past Family Social History Allergies: Coded Allergies: Codeine (Verified Adverse Reaction, Unknown, Nausea/Vomiting, 10/05/16) MRSA (arm) 09/23/16 Past Medical History History of depression Anxiety Alcohol abuse Smoking next COPD Past Surgical History Left finger partial amputation Status post strabismus correction Reported Medications Reported Meds & Active Scripts Active Reported [place] Carbonate 300 Mg Cap 300 Mg PO BID Seroquel (Quetiapine Fumarate) 100 Mg Tab 100 Mg PO BID Active Ordered Medications Current Medications Medications (Trade) Dose Ordered Sig/Karthik Route Start Time Stop Time Status Last Admin (Folate) 1 mg DAILY PO 10/05/16 09:00 10/10/16 08:59 10/05/16 09:33 (Vitamin B1) 100 mg DAILY PO 10/05/16 09:00 10/05/16 09:32 (Theragran M Tab) 1 tab DAILY PO 10/05/16 09:00 10/10/16 08:59 10/05/16 09:32 (Romazicon Inj) 0.2 mg Q1M PRN IV PUSH 10/05/16 06:00 (Ativan) 1 mg Q4H PRN PO 10/05/16 06:00 (Ativan Inj) 1 mg Q4H PRN IV PUSH 10/05/16 06:00 (Ativan) 2 mg Q2H PRN PO 10/05/16 06:00 (Ativan Inj) 2 mg Q2H PRN IV PUSH 10/05/16 06:00 (Ativan Inj) 2 mg Q1H PRN IV PUSH 10/05/16 06:00 (Ativan Inj) 2 mg Q15M PRN IV PUSH 10/05/16 06:00 10/05/16 07:43 Haloperidol Lactate 2 mg 2 mg Q15M PRN IM 10/05/16 06:00 (NS 1000 ml Inj) 1,000 ml @ 100 mls/hr Q10H IV 10/05/16 05:55 10/05/16 06:23 (NS Flush) 2 ml UNSCH PRN IV FLUSH 10/05/16 06:00 (NS Flush) 2 ml BID IV FLUSH 10/05/16 09:00 10/05/16 09:34 (Zofran Inj) 4 mg Q6H PRN IVP 10/05/16 06:00 (Tylenol) 650 mg Q6H PRN PO 10/05/16 06:00 (Esther-Colace) 1 tab BID PO 10/05/16 09:00 10/05/16 09:33 (Milk Of Magnesia Liq) 30 ml Q12H PRN PO 10/05/16 06:00 (Senokot) 17.2 mg Q12H PRN PO 10/05/16 06:00 (Dulcolax Supp) 10 mg DAILY PRN RECTAL 10/05/16 06:00 (Lactulose Liq) 30 ml DAILY PRN PO 10/05/16 06:00 (Bactroban 2% Cream) 1 applic Q12HR TOPICAL 10/05/16 12:00 (Bactrim Ds 800-160 Mg) 1 tab Q12HR PO 10/05/16 12:00 10/15/16 11:59 (Bactroban 2% Cream) 1 applic Q12HR TOPICAL 10/05/16 12:00 Family History Noncontributory Social History Smokes cigarettes to 2 packs per day and cigar, alcohol abuse present Physical Exam Vital Signs Vital Signs Date Time Temp Pulse Resp B/P Pulse Ox O2 Delivery O2 Flow Rate FiO2 10/05/16 07:12 80 18 10/05/16 07:07 98.2 70 18 120/64 100 Room Air 10/05/16 05:18 79 18 99/62 99 Room Air 10/05/16 03:43 97.9 65 20 103/62 98 Physical Exam GENERAL: Well-nourished, well-developed patient. SKIN: Warm and dry. HEAD: Normocephalic. EYES: No scleral icterus. No injection or drainage. NECK: Supple, trachea midline. No JVD or lymphadenopathy. CARDIOVASCULAR: Tachycardia RESPIRATORY: Breath sounds equal bilaterally. No accessory muscle use. GASTROINTESTINAL: Abdomen soft, non-tender, nondistended. EXTREMITIES: No cyanosis, or edema. NEUROLOGICAL: Awake, alert, and oriented x 3. Non-focal. Laboratory Laboratory Tests Test 10/05/16 10/05/16 10/05/16 04:01 05:47 09:01 White Blood Count 12.7 Red Blood Count 4.32 Hemoglobin 13.2 Hematocrit 38.7 Mean Corpuscular Volume 89.5 Mean Corpuscular Hemoglobin 30.6 Mean Corpuscular Hemoglobin 34.2 Concent Red Cell Distribution Width 14.5 Platelet Count 264 Mean Platelet Volume 7.9 Neutrophils (%) (Auto) 63.6 Lymphocytes (%) (Auto) 25.1 Monocytes (%) (Auto) 6.2 Eosinophils (%) (Auto) 4.3 Basophils (%) (Auto) 0.8 Neutrophils # (Auto) 8.1 Lymphocytes # (Auto) 3.2 Monocytes # (Auto) 0.8 Eosinophils # (Auto) 0.5 Basophils # (Auto) 0.1 CBC Comment DIFF FINAL Differential Comment Sodium Level 138 Potassium Level 3.6 Chloride Level 110 Carbon Dioxide Level 21.7 Anion Gap 6 Blood Urea Nitrogen 10 Creatinine 0.96 Estimat Glomerular Filtration 82 Rate Random Glucose 93 Calcium Level 8.6 Total Bilirubin 0.3 Aspartate Amino Transf 28 (AST/SGOT) Alanine Aminotransferase 25 (ALT/SGPT) Alkaline Phosphatase 75 Total Protein 6.6 Albumin 3.4 Salicylates Level 4.7 Acetaminophen Level LESS THAN 2.0 [place] Level 2.8 4.6 Ethyl Alcohol Level 116 Urine Opiates Screen NEG Urine Barbiturates Screen NEG Urine Amphetamines Screen NEG Urine Benzodiazepines Screen NEG Urine Cocaine Screen NEG Urine Cannabinoids Screen NEG Result Diagram: 10/05/16 0401 10/05/16 0401 Assessment and Plan Problem List: (1) Intentional lithium overdose Plan: Patient to lithium level went up and has not declined by conventional method so I have discussed with him hemodialysis placement of Vas-Cath and doing dialysis to remove the drug He agreed to it and procedure were explained to have the dialysis. Vas-Cath will be placed and orders are placed for hemodialysis. (2) Suicide attempt Plan: [place] overdose (3) Leukocytosis Plan: Continue to monitor Problem Qualifiers (1) Intentional lithium overdose: Qualified Code: T56.892A - Intentional lithium overdose, initial encounter Hansel Ann MD Oct 05, 2016 12:53
--- NOTE | 2016-10-05 13:52 | PD.PSY.CON ---
Provisional Diagnosis Admission Date Oct 05, 2016 at 05:54 Shirley I. 1. Alcohol dependence Shirley II. 1. 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 GAF is 57 presently History of Present Illness Service Psychiatry Consult Requested By Dr. Espitia Reason for Consult Klukwan overdose Primary Care Physician Unknown HPI Mr. Belle is a 55 year-old male with a history of alcohol use disorder and personality disorder who is presently admitted to the [facility] following a lithium overdose. He was placed under a Mccartney act by the [place] [employer]. Reviewing the electronic medical record, I note the patient was seen in consultation 3 days ago by nurse practitioner Trent and before that on 09/[address] From Dr. Hickman's note, I gather that the patient has a history of self-injury as a maladaptive coping mechanism. Patient seen and examined. Chart reviewed. Case discussed with nursing staff. On my examination today, the patient presents as fairly sarcastic and flippant. Chiefly antisocial personality traits noted including failure to conform to social norms, recklessness, and impulsivity among other features. He says that he has been making repeated self-injurious efforts since he was a teen, noting that he has tried hanging himself, walking into traffic, cutting himself, overdosing. It does not seem that these efforts are suicidal as he describes them, but rather they seem to reflect the maladaptive efforts at self- injury as noted by Dr. Hickman. He was apparently recently kicked out of a prison. He also says that he went for a case management appointment at [facility] and was made to wait until 11am for a 10am appointment and he wanted to "show [ the rehabilitation caseworker] my ass and call her a fucking stinking ass [facility] He says that these two issues are what led him to make the ingestion of 23 lithium tabs. He takes a perverse glee in castigating the provider who gave him the pills on which he overdosed. Currently, his psychiatric symptomatology is quite vague. All that he will say of substance is that he is "not in a good state of mind." There is no evidence of depression or kelsie. He is not presently psychotic. He does not describe any current suicidal or homicidal ideation and at times presents as future oriented. The remainder of the psychiatric ROS is negative. Past psychiatric history: Patient has psychiatric diagnoses as noted above. He apparently follows at [facility]. He reports a history of several psychiatric hospitalizations in the past and says that he has been hospitalized at a state psychiatric hospital in another state. He endorses a history of repeated efforts at self injury as detailed above, although it is unclear if any of these were actually suicide attempts. Family history: The patient will only say that "everybody is squirrely" in his family. Chemical dependency history: When I try to inquire about his pattern of substance use, the patient rattles of an extensive list of substances he purports to abuse. His alcohol level was elevated at 116 and his urine toxicology was negative. Social history: Patient is homeless. He has his GED. He does not work and has no income. Denies any history. He purports to have a history of long term sentence for murder. Believes in God he says. Denies any access to guns or firearms. Review of Systems ROS Limitations: Poor Historian Except as stated in HPI: all other systems reviewed are Neg Past Family Social History Coded Allergies: Codeine (Verified Adverse Reaction, Unknown, Nausea/Vomiting, 10/05/16) MRSA (arm) 09/23/16 Past Medical History see emr Reported Medications Klukwan Carbonate 300 Mg [id number] Mg PO BID Ref 0 10/05/16 Quetiapine (Seroquel)100 Mg [id number] Mg PO BID #60 TAB Ref 0 10/05/16 Discontinued Scripts Cephalexin 500 Mg [id number] Mg PO Q6H #40 CAP Prov:Lluvia Louis MD 09/24/16 Sulfamethoxazole-Trimethoprim (Bactrim DS)800-160 Mg Tab1 Tab PO BID #20 TAB Prov:Lluvia Louis MD 09/24/16 Current Medications Medications (Trade) Dose Ordered Sig/Karthik Route Start Time Stop Time Status Last Admin (Folate) 1 mg DAILY PO 10/05/16 09:00 10/10/16 08:59 10/05/16 09:33 (Vitamin B1) 100 mg DAILY PO 10/05/16 09:00 10/05/16 09:32 (Theragran M Tab) 1 tab DAILY PO 10/05/16 09:00 10/10/16 08:59 10/05/16 09:32 (Romazicon Inj) 0.2 mg Q1M PRN IV PUSH 10/05/16 06:00 (Ativan) 1 mg Q4H PRN PO 10/05/16 06:00 (Ativan Inj) 1 mg Q4H PRN IV PUSH 10/05/16 06:00 (Ativan) 2 mg Q2H PRN PO 10/05/16 06:00 (Ativan Inj) 2 mg Q2H PRN IV PUSH 10/05/16 06:00 (Ativan Inj) 2 mg Q1H PRN IV PUSH 10/05/16 06:00 (Ativan Inj) 2 mg Q15M PRN IV PUSH 10/05/16 06:00 10/05/16 07:43 Haloperidol Lactate 2 mg 2 mg Q15M PRN IM 10/05/16 06:00 (NS 1000 ml Inj) 1,000 ml @ 100 mls/hr Q10H IV 10/05/16 05:55 10/05/16 06:23 (NS Flush) 2 ml UNSCH PRN IV FLUSH 10/05/16 06:00 (NS Flush) 2 ml BID IV FLUSH 10/05/16 09:00 10/05/16 09:34 (Zofran Inj) 4 mg Q6H PRN IVP 10/05/16 06:00 (Tylenol) 650 mg Q6H PRN PO 10/05/16 06:00 (Esther-Colace) 1 tab BID PO 10/05/16 09:00 10/05/16 09:33 (Milk Of Magnesia Liq) 30 ml Q12H PRN PO 10/05/16 06:00 (Senokot) 17.2 mg Q12H PRN PO 10/05/16 06:00 (Dulcolax Supp) 10 mg DAILY PRN RECTAL 10/05/16 06:00 (Lactulose Liq) 30 ml DAILY PRN PO 10/05/16 06:00 (Bactroban 2% Cream) 1 applic Q12HR TOPICAL 10/05/16 12:00 (Bactrim Ds 800-160 Mg) 1 tab Q12HR PO 10/05/16 12:00 10/15/16 11:59 Mupirocin 1 applic 1 applic Q12HR TOPICAL 10/05/16 12:00 Sodium Chloride 1,000 ml @ 0 mls/hr Q0M PRN IV 10/05/16 12:42 Sodium Chloride 1,000 ml @ 200 mls/hr Q5H PRN IV 10/05/16 12:42 (NS 1000 ml Inj) 1,000 ml @ 0 mls/hr Q0M PRN IV 10/05/16 12:42 (Mannitol Inj) 12.5 gm UNSCH PRN IV 10/05/16 12:45 (Albumin 25% Inj) 25 gm UNSCH PRN IV 10/05/16 12:45 (NS Flush) 5 ml UNSCH PRN IV FLUSH 10/05/16 12:45 (Heparin Inj) UNSCH PRN .XX 10/05/16 12:45 (Gentamicin (Dialysis) Inj) 20 mg UNSCH PRN IV 10/05/16 12:45 (Zofran Inj) 4 mg UNSCH PRN IV 10/05/16 12:45 (Tylenol) 650 mg UNSCH PRN PO 10/05/16 12:45 (Benadryl) 25 mg UNSCH PRN PO 10/05/16 12:45 (Nitrostat Sl) 0.4 mg UNSCH PRN SL 10/05/16 12:45 (Catapres) 0.1 mg UNSCH PRN PO 10/05/16 12:45 (Gelfoam 12 Mm/7 Mm Top) 1 foam UNSCH PRN TOP 10/05/16 12:45 Patient's Strengths (min. 2) in monitored setting. verbal. Physical Exam Physical exam completed by primary team. On my examination today, the patient appears to be somewhat ill-appearing but in no acute physical distress. No abnormal motor movements noted. Labs and vitals reviewed: Vital Signs Vital Signs Date Time Temp Pulse Resp B/P Pulse Ox O2 Delivery O2 Flow Rate FiO2 10/05/16 13:31 97 21 10/05/16 07:12 80 18 10/05/16 07:07 98.2 120/64 Room Air Lab Results Laboratory Tests Test 10/05/16 10/05/16 10/05/16 04:01 05:47 13:33 White Blood Count 12.7 TH/MM3 Red Blood Count 4.32 MIL/MM3 Hemoglobin 13.2 GM/DL Hematocrit 38.7 % Mean Corpuscular Volume 89.5 FL Mean Corpuscular Hemoglobin 30.6 PG Mean Corpuscular Hemoglobin 34.2 % Concent Red Cell Distribution Width 14.5 % Platelet Count 264 TH/MM3 Mean Platelet Volume 7.9 FL Neutrophils (%) (Auto) 63.6 % Lymphocytes (%) (Auto) 25.1 % Monocytes (%) (Auto) 6.2 % Eosinophils (%) (Auto) 4.3 % Basophils (%) (Auto) 0.8 % Neutrophils # (Auto) 8.1 TH/MM3 Lymphocytes # (Auto) 3.2 TH/MM3 Monocytes # (Auto) 0.8 TH/MM3 Eosinophils # (Auto) 0.5 TH/MM3 Basophils # (Auto) 0.1 TH/MM3 CBC Comment DIFF FINAL Differential Comment Sodium Level 138 MEQ/L Potassium Level 3.6 MEQ/L Chloride Level 110 MEQ/L Carbon Dioxide Level 21.7 MEQ/L Anion Gap 6 MEQ/L Blood Urea Nitrogen 10 MG/DL Creatinine 0.96 MG/DL Estimat Glomerular Filtration 82 ML/MIN Rate Random Glucose 93 MG/DL Calcium Level 8.6 MG/DL Total Bilirubin 0.3 MG/DL Aspartate Amino Transf 28 U/L (AST/SGOT) Alanine Aminotransferase 25 U/L (ALT/SGPT) Alkaline Phosphatase 75 U/L Total Protein 6.6 GM/DL Albumin 3.4 GM/DL Salicylates Level 4.7 MG/DL Acetaminophen Level LESS THAN 2.0 MCG/ML Ethyl Alcohol Level 116 MG/DL Urine Opiates Screen NEG Urine Barbiturates Screen NEG Urine Amphetamines Screen NEG Urine Benzodiazepines Screen NEG Urine Cocaine Screen NEG Urine Cannabinoids Screen NEG [place] Level 4.3 MEQ/L Mental Status Examination Patient is in hospital gown. He is somewhat disheveled. He is awake and alert and oriented 3. No evidence of delirium. No motor abnormalities noted. Speech within normal limits for rate, tone and volume. Language and fund of knowledge average. Memory grossly intact on clinical exam. No issues with mood that I can appreciate and affect is full and reactive is somewhat sarcastic. Thought process linear. No loosening of associations. No delusions. No audiovisual hallucinations. No current suicidal or homicidal ideation. Insight and judgment are poor. Previous Suicide Attempts: No Previous Homicide Attempts: No Assessment & Plan Problem List: (1) Alcohol dependence ICD Code: F10.20 (2) Mixed personality disorder ICD Code: F60.89 Assessment & Plan 55-year-old male with psychiatric history as detailed above who is presently admitted to the [facility] under a Mccartney act following a lithium overdose. Patient presents as antisocial, and I suspect this, coupled with his substance use issues, is the core of his psychopathology. I cannot appreciate any unstable mood, anxiety or psychotic disorder in this patient at this time. His reported and documented history of repeated attempts at self-injury, of which I suspect his presenting ingestion is one, likely stem from the reckless disregard for safety of self and impulsivity associated with the antisocial personality. His alcohol use simply adds 'fuel to the fire' as it were, and patient is pre-contemplative with regards to changing his pattern of use. There may also be a component of acting out for prison as he was reportedly recently kicked out of his homeless prison. His overall prognosis is poor, and I suspect he will continue to self-injure until he succeeds, perhaps accidentally, in causing fatal damage. Psychiatric hospitalization is likely to do little more than contain him for a brief time. Providing the patient with psychotropic medications is likely to simply give him another means of self-injury, and the patient himself has pointed this out to me. I will retain the patient under the Mccartney Act to allow for further observation, but unless a more treatable psychiatric illness declares itself, the Mccartney Act can likely ultimately be lifted. A sitter should be with the patient for safety since I suspect he is chronically unpredictable and may make further efforts to self-injure while in house. Thank you very much for this consultation. Please call or page [phone] with questions through the weekend. Dr. Hickman to resume seeing consults tomorrow, Thursday. Problem Qualifiers (1) Alcohol dependence: Qualified Code: F10.20 - Uncomplicated alcohol dependence Paul Buckley MD Oct 05, 2016 13:52
--- NOTE | 2016-10-05 14:01 | PD.PROCEDR ---
Central Line Procedure REASON FOR PROCEDURE Central venous access PROCEDURE PERFORMED Central line placement: LIJ central line. US guided CONSENT Informed consent for procedure was obtained and time out performed. The risks and benefits of the procedure were discussed to include but limited to bleeding , clot formation, infection, and even . ANESTHESIA Local injection of 1% Lidocaine DESCRIPTION OF THE PROCEDURE The patient was placed in supine, mild Trendelenburg position. The area was exposed and cleansed with ChloraPrep, times two. Large sterile drape was used to cover the patient, with the site exposed, under sterile conditions including cap, face mask, sterile gown, and sterile gloves. On single attempt, the introducer needle was inserted with negative pressure in syringe and venous flash was obtained. The guide wire was then advanced without any restriction and the needle was removed. The dilator was used without any complications. Using Seldinger technique the 24 cm 14 [place] 2 lm hemodialysis catheter was advanced over the guide wire to a depth of 22 centimeters. The guide wire was removed. All ports were aspirated with dark venous blood return and flushed easily with sterile saline. All ports were capped. Antibiotic disc was placed around central line at puncture site. The central line was secured to the skin with two interrupted 2.0 silk sutures. The area was bandaged with sterile see- through central line bandage. RADIOLOGICAL DATA Ultrasound guidance was used to locate LIJ. Doppler/color flow was used to confirm venous flow. COMPLICATIONS: No apparent complications ESTIMATED BLOOD LOSS: Less than 1 cc. Georgia Pearson MD Oct 05, 2016 14:01
[2016-10-05] MEDS ORDERED: fentaNYL CITRATE 250 MCG/5 ML AMP IV PUSH ONE (14:30)
--- NOTE | 2016-10-05 15:16 | RADRPT ---
EXAM DATE/TIME: 10/05/2016 14:09 [place] COMPARISON: No previous studies available for comparison. INDICATIONS : Post vas cath placement. MEDICAL HISTORY : None. SURGICAL HISTORY : None. ENCOUNTER: Initial ACUITY: 1 day PAIN SCORE: 0/10 LOCATION: Bilateral chest FINDINGS: Left subclavian pacer wires are present with tips in the right atrium and right ventricle. No definit e pneumothorax is seen for technique. The lungs are clear without infiltrate, nodule, or mass. There is no appreciable pleural effusion for technique. Heart and mediastinum are unremarkable. CONCLUSION: No acute cardiopulmonary disease. Jono Santamaria MD on October 05, 2016 at 15:14 Board Certified Radiologist. This report was verified electronically.
[2016-10-06] VITALS: BP 104/66; PULSE 68; RESP 20; TEMP 98.7; O2SAT 94
[2016-10-06] MEDS: SODIUM CHLOR 0.9% 1000 ML INJ 1,000 ML IV SCH (01:44)
[2016-10-06 02:00] VITALS: PULSE 66
[2016-10-06 04:00] VITALS: BP 98/55; PULSE 54; RESP 20; TEMP 98.7; O2SAT 95
[2016-10-06 05:03] LABS: AUTOMATED NEUTROPHIL # 5.5 TH/MM3 (1.8-7.7); BASOPHIL # 0.1 TH/MM3 (0-0.2); BASOPHIL % 0.8 % (0.0-2.0); EOSINOPHIL # 0.4 TH/MM3 (0-0.4); EOSINOPHIL % 4.3 % (0.0-4.0); HEMATOCRIT 37.1 % (39.0-51.0); HEMO FLAGS DIFF FINAL; LYMPH % 21.5 % (9.0-44.0); LYMPHOCYTE # 1.8 TH/MM3 (1.0-4.8); MEAN CELL VOLUME 88.4 FL (80.0-100.0); MEAN CORPUSCULAR HEMOGLOBIN 30.4 PG (27.0-34.0); MEAN CORPUSCULAR HGB CONC 34.4 % (32.0-36.0); MONO % 9.3 % (0.0-8.0); NEUT % 64.1 % (16.0-70.0); PLATELET COUNT 180 TH/MM3 (150-450); RED CELL DISTRIBUTION WIDTH 14.6 % (11.6-17.2); WHITE BLOOD COUNT 8.6 TH/MM3 (4.0-11.0)
[2016-10-06 05:21] LABS: ALKALINE PHOSPHATASE 63 U/L (45-117); ALT (GPT) 19 U/L (12-78); ANION GAP 7 MEQ/L (5-15); AST (GOT) 19 U/L (15-37); BICARBONATE 29.5 MEQ/L (21.0-32.0); BLOOD UREA NITROGEN 8 MG/DL (7-18); CHLORIDE 102 MEQ/L (98-107); GLOMERULAR FILTRATION RATE 124 ML/MIN (>89); POTASSIUM 3.2 MEQ/L (3.5-5.1); SODIUM (NA) 138 MEQ/L (136-145); TOTAL BILIRUBIN ADULT 0.3 MG/DL (0.2-1.0)
[2016-10-06 06:00] VITALS: PULSE 62
[2016-10-06 08:00] VITALS: BP 94/61; PULSE 63; RESP 18; TEMP 98.4; O2SAT 96
[2016-10-06] MEDS ORDERED: POTASSIUM CHLORIDE 20 MEQ CONTROLLED RELEASE TAB PO ONE (08:30)
[2016-10-06] MEDS: MUPIROCIN 2% CREAM 15 GM TOPICAL SCH (09:00)
[2016-10-06] MEDS: DOCUSATE SODIUM 50 MG/SENNA 8.6 MG TAB PO SCH (09:17)
[2016-10-06] MEDS: MULTIVITAMINS/MINERALS THERAPEUTIC TAB PO SCH (09:17)
[2016-10-06] MEDS: THIAMINE HCL 100 MG TAB PO SCH (09:17)
[2016-10-06] MEDS: SULFAMETHOXAZOLE-TRIMETHOPRIM DS 800-160 MG TAB PO SCH (09:17)
[2016-10-06] MEDS: FOLIC ACID 1 MG TAB PO SCH (09:19)
[2016-10-06 11:07] LABS: MAGNESIUM 1.9 MG/DL (1.5-2.5)
[2016-10-06 12:45] VITALS: BP_SYST 103; BP_SYST 110; BP_DIAS 56; BP_DIAS 59; PULSE 68; PULSE 78; RESP 20; RESP 24; TEMP 97.9; TEMP 98.8; O2SAT 98; O2SAT 99
--- NOTE | 2016-10-06 13:52 | HHI.NPPN ---
Subjective History of Present Illness 55 year old with Eakly OD Objective Data Data 10/05/16 10/06/16 19:00 07:00 Intake Total 2514 ml Output Total 600 ml 2950 ml Balance -600 ml -436 ml Intake Oral 1350 ml IV Total 1164 ml Output Urine Total 600 ml 2950 ml # Bowel Movements 3 Vital Signs Date Time Temp Pulse Resp B/P Pulse Ox O2 Delivery O2 Flow Rate FiO2 10/06/16 12:45 98.8 68 20 103/59 99 10/06/16 11:39 100 Room Air 10/06/16 08:00 98.4 63 18 94/61 96 10/06/16 06:00 62 10/06/16 04:00 98.7 54 20 98/55 95 10/06/16 04:00 54 10/06/16 02:00 66 10/06/16 00:00 98.7 68 20 104/66 94 10/06/16 00:00 68 10/05/16 23:02 98 21 10/05/16 22:00 66 10/05/16 20:00 72 10/05/16 20:00 98.7 72 18 106/66 98 10/05/16 19:00 97 Room Air 10/05/16 16:00 66 10/05/16 16:00 98.9 72 20 142/87 96 10/05/16 14:00 60 -: 10/06/16 0346 10/06/16 0346 Physical Exam General Appearance: Well Developed Neck Neck Exam: Neck Supple Pulmonary Resp Exam: Clear Bilaterally, Breath Sounds Equal Cardiology CV Exam: Regular, Normal Sinus Rhythm Gastrointestinal/Abdomen GI Exam: Soft, Non-Tender, Bowel Sounds Present Extremeties Extremities Exam: No Edema Assessment/Plan Problem List: (1) Intentional lithium overdose Plan: Patient Eakly at 1.4 dc Vascath no longer need HD I will sign off (2) Suicide attempt Plan: Eakly overdose (3) Leukocytosis Plan: Continue to monitor Problem Qualifiers (1) Intentional lithium overdose: Qualified Code: T56.892A - Intentional lithium overdose, initial encounter Hansel Ann MD Oct 06, 2016 13:52
--- NOTE | 2016-10-06 14:58 | HHI.PYPN ---
Subjective Remarks Patient seen today for psychiatric evaluation, patient is calm, cooperative, and a good spirit. Patient says that he overdosed with pills to make a point to SMA. He denies suicidal ideation, denies suicidal plan, denies homicidal ideation, he denies visual and auditory hallucinations. He reports his mood as "ok" denies depressive symptoms, denies anxiety, denies kelsie. Oriented 3, compliant with medications and recommendations so far. Review of Systems Other No somatic complaints Objective Alert: Yes [place]: Person, Place, Date, Situation Mood: Calm Affect: Appropriate Memory Intact: Immediate, Recent, Remote, Comment Hallucinations: Other (no hallucinations) Delusions: No Delusion Type: Other Suicidal: Ideation (no SI) Homicidal: Ideation (no HI) Insight/Judgment Fair Labs Test 10/05/16 10/05/16 10/05/16 10/06/16 15:00 20:04 23:58 03:46 Nasal Screen MRSA (PCR) MRSA DETECTED [place] Level 1.9 MEQ/L 1.6 MEQ/L 1.4 MEQ/L Hepatitis A IgM Antibody NEGATIVE Hepatitis B Surface Antigen NEGATIVE Hepatitis B Core IgM Antibody NEGATIVE Hepatitis C Antibody NEGATIVE White Blood Count 8.6 TH/MM3 Red Blood Count 4.20 MIL/MM3 Hemoglobin 12.8 GM/DL Hematocrit 37.1 % Mean Corpuscular Volume 88.4 FL Mean Corpuscular Hemoglobin 30.4 PG Mean Corpuscular Hemoglobin 34.4 % Concent Red Cell Distribution Width 14.6 % Platelet Count 180 TH/MM3 Mean Platelet Volume 8.1 FL Neutrophils (%) (Auto) 64.1 % Lymphocytes (%) (Auto) 21.5 % Monocytes (%) (Auto) 9.3 % Eosinophils (%) (Auto) 4.3 % Basophils (%) (Auto) 0.8 % Neutrophils # (Auto) 5.5 TH/MM3 Lymphocytes # (Auto) 1.8 TH/MM3 Monocytes # (Auto) 0.8 TH/MM3 Eosinophils # (Auto) 0.4 TH/MM3 Basophils # (Auto) 0.1 TH/MM3 CBC Comment DIFF FINAL Differential Comment Sodium Level 138 MEQ/L Potassium Level 3.2 MEQ/L Chloride Level 102 MEQ/L Carbon Dioxide Level 29.5 MEQ/L Anion Gap 7 MEQ/L Blood Urea Nitrogen 8 MG/DL Creatinine 0.67 MG/DL Estimat Glomerular Filtration 124 ML/MIN Rate Random Glucose 97 MG/DL Calcium Level 8.8 MG/DL Magnesium Level 1.9 MG/DL Total Bilirubin 0.3 MG/DL Aspartate Amino Transf 19 U/L (AST/SGOT) Alanine Aminotransferase 19 U/L (ALT/SGPT) Alkaline Phosphatase 63 U/L Total Protein 5.5 GM/DL Albumin 2.8 GM/DL Vitals/IOs Vital Signs Date Time Temp Pulse Resp B/P Pulse Ox O2 Delivery O2 Flow Rate FiO2 10/06/16 12:45 98.8 68 20 103/59 99 10/06/16 11:39 Room Air 10/05/16 23:02 21 Intake and Output 10/05/16 10/05/16 10/05/16 07:59 15:59 23:59 Intake Total 1010 ml Output Total 600 ml 1500 ml Balance -600 ml -490 ml Assessment & Plan Problem List: (1) Alcohol dependence ICD Code: F10.20 (2) Mixed personality disorder Assessment & Plan: Based on this evaluation patient does not presenting any psychiatric symptoms that requires an immediate psychiatric intervention or meet criteria for involuntary psychiatric admission. Patient has a strong history of poor impulse control, self mutilation, manipulative behavior, and parasuicidal attempts as a way to release stress and communicate anger. A psychiatric admission at this moment would not be beneficial. Extensive support , motivation and psychoeducation provided. No psychotropics recommended. Mccartney act will be lifted. ICD Code: F60.89 Assessment & Plan Estimated LOS: days Justification for Cont. Inpt. No criteria for psychiatric admission at this moment. Problem Qualifiers (1) Alcohol dependence: Qualified Code: F10.20 - Uncomplicated alcohol dependence Mahin Hickman MD Oct 06, 2016 14:58
[2016-10-06] MEDS ORDERED: SULF1TAB23 PO (15:12)
--- NOTE | 2016-10-06 15:14 | HHI.DCPOC ---
Discharge Care Plan Diagnosis: (1) Intentional lithium overdose (2) Furuncle (3) Arm laceration (4) Suicide attempt Goals to Promote Your Health * To prevent worsening of your condition and complications * To maintain your health at the optimal level Directions to Meet Your Goals Take your medications as prescribed Follow your dietary instruction Follow activity as directed Keep your appointments as scheduled Take your immunizations and boosters as scheduled If your symptoms worsen call your PCP, if no PCP go to Urgent Care Center or Emergency Room Smoking is Dangerous to Your Health. Avoid second hand smoke Call the 24-hour hour crisis hotline for domestic abuse at Yissel Bill MD Oct 06, 2016 15:14
--- NOTE | 2016-10-06 15:14 | HHI.DS ---
Discharge Summary Admission Date Oct 05, 2016 at 05:54 Discharge Date: Oct 06, 2016 Admitting Diagnosis lithium overdose, alcohol intoxication (1) Intentional lithium overdose ICD Code: T56.892A Diagnosis: Principal (2) Suicide attempt ICD Code: T14.91 Diagnosis: Principal (3) Leukocytosis ICD Code: D72.829 Diagnosis: Secondary (4) Dehydration ICD Code: E86.0 Diagnosis: Secondary (5) Alcohol abuse ICD Code: F10.10 Diagnosis: Secondary (6) Tobacco abuse ICD Code: Z72.0 Diagnosis: Secondary (7) Furuncle ICD Code: L02.92 Diagnosis: Secondary Procedures See hospital course. Brief History - From Admission This is a 55-year-old male with PMH of Anxiety, Depression, COPD, Alcohol Abuse and Tobacco Abuse who was brought to the ER under M[place] Act secondary to intentional lithium overdose in suicide attempt. Per patient, he took approximately 23 tablets of Foscoe 300mg at approx 11pm last evening. Also found to have missing Seroquel 100mg tablets, however denies ingestion. No c/o chest pain or SOB. On arrival, BP 103/62, HR 65, O2 sat 98% on RA, Afebrile. Recent ER presentation on 10/01/16 w/ suicidal ideation and self mutilation under [place] Act, s/p eval by Psych w/ d/c home. Returns now w/ intentional ingestion. WBC 12.7. Chemistry essentially unremarkable except for GFR 82. Urine Drug Screen pending. Foscoe 2.8. Alcohol 116. Poison Control contacted , recommended q4h Foscoe levels. CBC/BMP: 10/06/16 0346 10/06/16 0346 Significant Findings Laboratory Tests Test 10/05/16 10/05/16 10/05/16 10/05/16 04:01 09:01 13:33 20:04 White Blood Count 12.7 TH/MM3 (4.0-11.0) Red Blood Count 4.32 MIL/MM3 (4.50-5.90) Hematocrit 38.7 % (39.0-51.0) Eosinophils (%) (Auto) 4.3 % (0.0-4.0) Neutrophils # (Auto) 8.1 TH/MM3 (1.8-7.7) Eosinophils # (Auto) 0.5 TH/MM3 (0-0.4) Chloride Level 110 MEQ/L (98-107) Estimat Glomerular Filtration 82 ML/MIN (>89) Rate Acetaminophen Level LESS THAN 2.0 MCG/ML (10.0-30.0) [place] Level 2.8 MEQ/L 4.6 MEQ/L 4.3 MEQ/L 1.9 MEQ/L (0.5-1.5) (0.5-1.5) (0.5-1.5) (0.5-1.5) Ethyl Alcohol Level 116 MG/DL (0-5) Test 10/05/16 10/06/16 23:58 03:46 [place] Level 1.6 MEQ/L (0.5-1.5) Red Blood Count 4.20 MIL/MM3 (4.50-5.90) Hemoglobin 12.8 GM/DL (13.0-17.0) Hematocrit 37.1 % (39.0-51.0) Monocytes (%) (Auto) 9.3 % (0.0-8.0) Eosinophils (%) (Auto) 4.3 % (0.0-4.0) Potassium Level 3.2 MEQ/L (3.5-5.1) Total Protein 5.5 GM/DL (6.4-8.2) Albumin 2.8 GM/DL (3.4-5.0) Imaging Last Impressions Chest X-Ray 10/05/16 0000 Signed Impressions: Service Date/Time: Wednesday, October 05, 2016 14:09 - CONCLUSION: No acute cardiopulmonary disease. Jono Santamaria MD PE at Discharge GENERAL: Well-developed, well-nourished patient in NAD SKIN: Warm and dry. HEAD: Atraumatic. Normocephalic. EYES: Pupils equal and round. No scleral icterus. No injection or drainage. ENT: No nasal bleeding or discharge. Mucous membranes pink and moist. NECK: Trachea midline. No JVD. CARDIOVASCULAR: Regular rate and rhythm. RESPIRATORY: No accessory muscle use. Clear to auscultation. Breath sounds equal bilaterally. GASTROINTESTINAL: Abdomen soft, non-tender, nondistended. MUSCULOSKELETAL: Extremities without clubbing, cyanosis, or edema. No obvious deformities. Stapled wound left outer arm slightly swollen but no redness no discharge NEUROLOGICAL:alert AAO X 3. No obvious cranial nerve deficits. Motor grossly within normal limits. Five out of 5 muscle strength in the arms and legs. Normal speech. Pt update on day of discharge Follow-up for intentional lithium overdose Patient has no complaints. Denied any pain, nausea vomiting. Patient denied any suicidal or homicidal ideation. He denied being depressed. No events since patient was last seen. His sitters at the bedside. Hospital Course Patient was admitted to the hospital due to Intentional Foscoe Overdose: reports taking 23 tablets of Foscoe 300mg at approx 11pm 10/04, Foscoe 2.8. EKG w/ no acute changes. Poison Control contacted by ER physician, recommended q4h Foscoe levels, ordered. Telemetry. on 10/05 patient with increasing lithium level of 4.6 with symptoms of nausea, loose stools and lethargy. Poison control recommends emergent hemodialysis which patient agrees. Patient had a Vas-Cath placed by intensive care physician and hemodialysis by scoop filler. Foscoe levels were monitored closely and was within normal limits by the time he was discharge. Manager Agriculture signed off on the day of discharge. Suicide Attempt: Intentional OD in Suicide Attempt, currently under [place] Act. Recent ER presentation 10/01/16 w/ Suicidal Ideation and Self Mutilation under [place] Act. Patient had a sitter. Psychiatrists consulted and by the time of discharge Mccartney act was lifted by psychiatrists and per psychiatrist did not recommend any psychotropic medications and did not meet psychiatric admission. Mixed personality disorder: Patient to follow-up as outpatient. Leukocytosis: WBC 12.7. Patient has self-inflicted wound left forearm which was repaired however culture grew MRSA. He also has right scrotal furuncle. Resolved the next day with IV fluids and Bactrim. Continue with Bactrim. Dehydration: GFR 82, BUN/Creatinine normal. IVF for hydration, resolved on day of discharge. Alcohol Abuse: w/ Acute Alcohol Intoxication. Alcohol 116. Drinks 12-14 beers /day. High risk for withdrawal, CIWA, Seizure Precautions, MVT/Thiamine/Folate replacement. No signs of alcohol withdrawal on the day of discharge patient was educated extensively on alcohol abuse. Tobacco Abuse: Pt counselled. NicoDerm prn if needed. Pt Condition on Discharge: Stable Discharge Disposition: Discharge Home Discharge Time: <= 30 minutes Discharge Instructions DIET: Follow Instructions for: As Tolerated, No Restrictions Activities you can perform: Regular-No Restrictions Follow up Referrals: PCP Follow-up - 3-5 Days Psychiatry Adult - 1 Week New Medications: Sulfamethoxazole-Trimethoprim (Sulfamethoxazole-Trimethoprim) 800-160 Mg Tab 1 TAB PO Q12HR infection #14 Ref 0 TAB Discontinued Medications: Foscoe Carbonate (Foscoe Carbonate) 300 Mg Cap 300 MG PO BID Ref 0 CAP Quetiapine (Seroquel) 100 Mg Tab 100 MG PO BID #60 Ref 0 TAB Yissel Bill MD Oct 06, 2016 15:14
--- NOTE | 2016-10-06 19:46 | EKG ---
Date Performed: 10/05/2016 Time Performed: 11:35:17 PTAGE: 55 years EKG: Sinus rhythm NORMAL ECG INTERPRETATION BASED ON A DEFAULT AGE OF 40 YEARS PREVIOUS TRACING : 10/05/2016 03.37 Since previous tracing, no significant change noted DOCTOR: Darin Peterson Interpretating Date/Time 10/06/2016 19:45:15
== END 2016-10-06 17:54 | disposition home or self-care (01) | DRG 918 ==
LOC: NEPE 03:18 → NEDA 05:54 → NEPGCP 08:35 → N03B 12:06
PROVIDERS: ADMIT Family Medicine; ATTEND Family Medicine
PROC: 05HN33Z Insertion of Infusion Device into Left Internal Jugular Vein, Percutaneous Approach (ICD-10-PCS; principal; 2016-10-05)
DX: T43.592A Poisoning by other antipsychotics and neuroleptics, intentional self-harm, initial encounter (principal); F32.9 Major depressive disorder, single episode, unspecified; F17.210 Nicotine dependence, cigarettes, uncomplicated; F41.9 Anxiety disorder, unspecified; F10.129 Alcohol abuse with intoxication, unspecified; Y90.5 Blood alcohol level of 100-119 mg/100 ml; E86.0 Dehydration; J44.9 Chronic obstructive pulmonary disease, unspecified; N49.2 Inflammatory disorders of scrotum; B95.62 Methicillin resistant Staphylococcus aureus infection as the cause of diseases classified elsewhere
CPT/HCPCS: 71010; 80053; 80074; 80178; 80307; 82948; 83735; 85025; 87641; 90935; 93005; 96361; 96374; J2060; J2405; J3010; J7030

== ENCOUNTER 2016-10-07 17:06 | Emergency (ER) | payer OTHER ==
[~2016-10-07] VITALS: Ht 180.3 cm; Wt 63.0 kg
[~2016-10-07 17:06] MED LIST changes: -BACT800T5 PO; -CEPH500C PO; +SULF1TAB23 PO
[2016-10-07 17:27] VITALS: BP 119/64; PULSE 76; RESP 16; TEMP 98.6; O2SAT 96
[2016-10-07] MEDS ORDERED: HALOPERIDOL LACTATE 5 MG/ML AMP IM ONE (18:45)
[2016-10-07] MEDS ORDERED: diphenhydrAMINE HCL 50 MG/ML VIAL IM ONE (18:45)
[2016-10-07] MEDS ORDERED: LORazepam 2 MG/ML VIAL IM ONE (18:45)
[2016-10-07 19:04] LABS: AUTOMATED NEUTROPHIL # 9.4 TH/MM3 (1.8-7.7); BASOPHIL # 0.1 TH/MM3 (0-0.2); BASOPHIL % 0.7 % (0.0-2.0); EOSINOPHIL # 0.2 TH/MM3 (0-0.4); EOSINOPHIL % 1.2 % (0.0-4.0); HEMATOCRIT 39.7 % (39.0-51.0); HEMO FLAGS DIFF FINAL; LYMPH % 23.3 % (9.0-44.0); LYMPHOCYTE # 3.2 TH/MM3 (1.0-4.8); MEAN CELL VOLUME 89.5 FL (80.0-100.0); MEAN CORPUSCULAR HEMOGLOBIN 30.2 PG (27.0-34.0); MEAN CORPUSCULAR HGB CONC 33.8 % (32.0-36.0); MONO % 5.5 % (0.0-8.0); NEUT % 69.3 % (16.0-70.0); PLATELET COUNT 198 TH/MM3 (150-450); RED BLOOD COUNT 4.43 MIL/MM3 (4.50-5.90); RED CELL DISTRIBUTION WIDTH 14.8 % (11.6-17.2); WHITE BLOOD COUNT 13.5 TH/MM3 (4.0-11.0)
[2016-10-07 19:05] LABS: BLOOD, URINE SMALL (NEG); COMMENT (UR) CULT NOT INDICATED; CULTURE IF INDICATED CULT NOT INDICATED; GLUCOSE,URINE NEG (NEG); KETONE, URINE NEG (NEG); NITRITE,URINE NEG (NEG); URINE COLOR LIGHT-YELLOW (YELLW/STRAW)
[2016-10-07 19:14] LABS: AMPHETAMINE, URINE NEG (NEG); COCAINE, URINE NEG (NEG)
[2016-10-07 19:15] LABS: BARBITURATES, URINE NEG (NEG)
--- NOTE | 2016-10-07 19:23 | PD ---
HPI Chief Complaint: Psychiatric Symptoms Time Seen by Provider: 18:55 Travel History International Travel<30 days: No Contact w/Intl Traveler<30days: No Traveled to known affect area: No History of Present Illness HPI Patient is a 55-year-old male brought into the emergency Department under Mccartney act for suicidal ideations. Patient attempted to cut himself after getting mad. He states that he just wants to causes "life sucks". Patient admits to drinking 4 beers today. He reports previous history of suicide attempts, most recently last week when he attempted to overdose on lithium and then he called 911. Patient is verbally aggressive and physically threatening. He is shouting expletives at staff. He is not cooperative with exam. [facility] Past Medical History Anxiety: Yes Depression: Yes Cancer: No Cardiovascular Problems: No COPD: Yes (Reports patient.) Diminished Hearing: No Genitourinary: No Musculoskeletal: No Neurologic: No Psychiatric: Yes (ANXIETY, DEPRESSION) Reproductive: No Respiratory: Yes Immunizations Current: Yes Past Surgical History Eye Surgery: Yes (STRABISMUS CORRECTION) Other Surgery: Yes (partial finger amputations on the left hand) Family History Family Hypercholesterolemia: Yes Social History Alcohol Use: Yes Tobacco Use: Yes (2PPD + CIGARS) Substance Use: Yes (alcohol abuse) Allergies-Medications (Allergen,Severity, Reaction): Coded Allergies: *MDRO Multi-Drug Resistant Organism (Verified Adverse Reaction, Unknown, ) MRSA Arm Wound 09/23/16 MRSA PCR Positive 10/05/16 Codeine (Verified Adverse Reaction, Unknown, Nausea/Vomiting, 10/05/16) MRSA (arm) 09/23/16 Reported Meds & Prescriptions Reported Meds & Active Scripts Active Sulfamethoxazole-Trimethoprim 800-160 Mg Tab 1 Tab PO Q12HR Review of Systems Except as stated in HPI: all other systems reviewed are Neg Skin: Positive Lesions Psychiatric: Positive: Suicidal Ideations, Mood Disorder, Substance Abuse Physical Exam Narrative GENERAL: Thin, well-developed, alert male. SKIN: Warm and dry. Superficial lacerations to legs and forearm. Left forearm with a 5 cm x 2 mm superficial laceration. Repaired laceration to his left tricep, wenceslao are intact. HEAD: Atraumatic. Normocephalic. EYES: Pupils equal and round. No scleral icterus. No injection or drainage. ENT: No nasal bleeding or discharge. Mucous membranes pink and moist. NECK: Trachea midline. No JVD. CARDIOVASCULAR: Regular rate and rhythm. RESPIRATORY: No accessory muscle use. Clear to auscultation. Breath sounds equal bilaterally. GASTROINTESTINAL: Abdomen soft, non-tender, nondistended. Hepatic and splenic margins not palpable. MUSCULOSKELETAL: Extremities without clubbing, cyanosis, or edema. No obvious deformities. NEUROLOGICAL: Awake and alert. No obvious cranial nerve deficits. Motor grossly within normal limits. Five out of 5 muscle strength in the arms and legs. Normal speech. PSYCHIATRIC: Aggressive, combative mood and affect; insight and judgment impaired. Data Data Last Documented VS Vital Signs Date Time Temp Pulse Resp B/P Pulse Ox O2 Delivery O2 Flow Rate FiO2 10/07/16 20:58 72 18 124/70 100 Room Air 10/07/16 17:27 98.6 Orders Complete Blood Count With Diff (10/07/16 18:28) Comprehensive Metabolic Panel (10/07/16 18:28) Urinalysis - C+S If Indicated (10/07/16 18:28) Psych Screen (10/07/16 18:28) [place] (Li) (10/07/16 18:28) Drug Screen, Random Urine (10/07/16 18:28) Alcohol (Ethanol) (10/07/16 18:28) Salicylates (Aspirin) (10/07/16 18:28) Tylenol (Acetaminophen) (10/07/16 18:28) Lorazepam Inj (Ativan Inj) (10/07/16 18:45) Haloperidol Inj (Haldol Inj) (10/07/16 18:45) Diphenhydramine Inj (Benadryl Inj) (10/07/16 18:45) Restraints Violent (10/07/16 20:40) Labs Laboratory Tests Test 10/07/16 10/07/16 18:31 20:44 White Blood Count 13.5 TH/MM3 Red Blood Count 4.43 MIL/MM3 Hemoglobin 13.4 GM/DL Hematocrit 39.7 % Mean Corpuscular Volume 89.5 FL Mean Corpuscular Hemoglobin 30.2 PG Mean Corpuscular Hemoglobin 33.8 % Concent Red Cell Distribution Width 14.8 % Platelet Count 198 TH/MM3 Mean Platelet Volume 8.1 FL Neutrophils (%) (Auto) 69.3 % Lymphocytes (%) (Auto) 23.3 % Monocytes (%) (Auto) 5.5 % Eosinophils (%) (Auto) 1.2 % Basophils (%) (Auto) 0.7 % Neutrophils # (Auto) 9.4 TH/MM3 Lymphocytes # (Auto) 3.2 TH/MM3 Monocytes # (Auto) 0.7 TH/MM3 Eosinophils # (Auto) 0.2 TH/MM3 Basophils # (Auto) 0.1 TH/MM3 CBC Comment DIFF FINAL Differential Comment Urine Color LIGHT-YELLOW Urine Turbidity CLEAR Urine pH 6.0 Urine Specific Prue 1.003 Urine Protein NEG mg/dL Urine Glucose (UA) NEG mg/dL Urine Ketones NEG mg/dL Urine Occult Blood SMALL Urine Nitrite NEG Urine Bilirubin NEG Urine Urobilinogen LESS THAN 2.0 MG/DL Urine Leukocyte Esterase NEG Urine RBC LESS THAN 1 /hpf Urine WBC LESS THAN 1 /hpf Microscopic Urinalysis Comment CULT NOT INDICATED Sodium Level 139 MEQ/L Potassium Level 4.2 MEQ/L Chloride Level 105 MEQ/L Carbon Dioxide Level 26.6 MEQ/L Anion Gap 7 MEQ/L Blood Urea Nitrogen 6 MG/DL Creatinine 0.84 MG/DL Estimat Glomerular Filtration 96 ML/MIN Rate Random Glucose 87 MG/DL Calcium Level 9.4 MG/DL Total Bilirubin 0.4 MG/DL Aspartate Amino Transf 22 U/L (AST/SGOT) Alanine Aminotransferase 24 U/L (ALT/SGPT) Alkaline Phosphatase 80 U/L Total Protein 7.4 GM/DL Albumin 3.8 GM/DL Salicylates Level 1.9 MG/DL Urine Opiates Screen NEG Acetaminophen Level LESS THAN 2.0 MCG/ML Urine Barbiturates Screen NEG Urine Amphetamines Screen NEG Urine Benzodiazepines Screen NEG Urine Cocaine Screen NEG Urine Cannabinoids Screen NEG Ethyl Alcohol Level 178 MG/DL [place] Level 0.3 MEQ/L MDM Medical Decision Making Medical Screen Exam Complete: Yes Emergency Medical Condition: Yes Medical Record Reviewed: Yes Interpretation(s) Laboratory Tests Test 10/07/16 18:31 White Blood Count 13.5 TH/MM3 Red Blood Count 4.43 MIL/MM3 Hemoglobin 13.4 GM/DL Hematocrit 39.7 % Mean Corpuscular Volume 89.5 FL Mean Corpuscular Hemoglobin 30.2 PG Mean Corpuscular Hemoglobin 33.8 % Concent Red Cell Distribution Width 14.8 % Platelet Count 198 TH/MM3 Mean Platelet Volume 8.1 FL Neutrophils (%) (Auto) 69.3 % Lymphocytes (%) (Auto) 23.3 % Monocytes (%) (Auto) 5.5 % Eosinophils (%) (Auto) 1.2 % Basophils (%) (Auto) 0.7 % Neutrophils # (Auto) 9.4 TH/MM3 Lymphocytes # (Auto) 3.2 TH/MM3 Monocytes # (Auto) 0.7 TH/MM3 Eosinophils # (Auto) 0.2 TH/MM3 Basophils # (Auto) 0.1 TH/MM3 CBC Comment DIFF FINAL Differential Comment Urine Color LIGHT-YELLOW Urine Turbidity CLEAR Urine pH 6.0 Urine Specific Prue 1.003 Urine Protein NEG mg/dL Urine Glucose (UA) NEG mg/dL Urine Ketones NEG mg/dL Urine Occult Blood SMALL Urine Nitrite NEG Urine Bilirubin NEG Urine Urobilinogen LESS THAN 2.0 MG/DL Urine Leukocyte Esterase NEG Urine RBC LESS THAN 1 /hpf Urine WBC LESS THAN 1 /hpf Microscopic Urinalysis Comment CULT NOT INDICATED Sodium Level 139 MEQ/L Potassium Level 4.2 MEQ/L Chloride Level 105 MEQ/L Carbon Dioxide Level 26.6 MEQ/L Anion Gap 7 MEQ/L Blood Urea Nitrogen 6 MG/DL Creatinine 0.84 MG/DL Estimat Glomerular Filtration 96 ML/MIN Rate Random Glucose 87 MG/DL Calcium Level 9.4 MG/DL Total Bilirubin 0.4 MG/DL Aspartate Amino Transf 22 U/L (AST/SGOT) Alanine Aminotransferase 24 U/L (ALT/SGPT) Alkaline Phosphatase 80 U/L Total Protein 7.4 GM/DL Albumin 3.8 GM/DL Salicylates Level 1.9 MG/DL Urine Opiates Screen NEG Acetaminophen Level LESS THAN 2.0 MCG/ML Urine Barbiturates Screen NEG Urine Amphetamines Screen NEG Urine Benzodiazepines Screen NEG Urine Cocaine Screen NEG Urine Cannabinoids Screen NEG Ethyl Alcohol Level 178 MG/DL Vital Signs Date Time Temp Pulse Resp B/P Pulse Ox O2 Delivery O2 Flow Rate FiO2 10/07/16 17:27 98.6 76 16 119/64 96 Differential Diagnosis Mood disorder versus substance induced mood disorder versus suicidal ideations versus attention seeking versus lacerations versus abrasion versus other Narrative Course Patient is a 54-year-old male presenting to emergency for evaluation under Mccartney act for suicidal ideations and attempted suicide by cutting. The lacerations are superficial in nature, there is one that is on the left anterior forearm that will require repair. Labs ordered and pending. Patient placed in 4 point restraints for safety of staff due to patient's verbal and physical aggressiveness. CBC, chemistry, acetaminophen, salicylate, urine drug screen reviewed and are unremarkable. Alcohol level is elevated at 178. [place] level is pending however patient does deny taking any extra medications or attempting to overdose with pills today. [place] 0.3 Please see procedure report for laceration repair. Wenceslao will need to be removed in 7-10 days. Patient is medically cleared for psychiatric evaluation at this time. Procedures Procedure Narrative LACERATION LOCATION: Left anterior forearm LENGTH: 3 cm NUMBER OF STITCHES/WENCESLAO: 3 wenceslao REPAIR: The area of the laceration was prepped with Betadine and sterilely draped. The laceration was infiltrated with 1% lidocaine. The wound was copiously irrigated and explored without evidence of foreign body, tendon injury or neurovascular injury. The wound was closed using wenceslao. This was a 1 layer repair. A sterile dressing was applied. The patient was advised to keep the dressing clean and dry. Patient tolerated the procedure well. LACERATION LOCATION: Left shoulder LENGTH: 2 cm NUMBER OF STITCHES/WENCESLAO: One staple REPAIR: The area of the laceration was prepped with Betadine and sterilely draped. The wound was copiously irrigated and explored without evidence of foreign body, tendon injury or neurovascular injury. The wound was closed using wenceslao. This was a 1 layer repair. A sterile dressing was applied. The patient was advised to keep the dressing clean and dry. Patient tolerated the procedure well. Diagnosis Primary Impression: Medical clearance for psychiatric admission Additional Impressions: Alcohol intoxication Qualified Code: F10.920 - Alcohol intoxication, uncomplicated Self-mutilation Arm laceration Qualified Code: S41.112A - Arm laceration, left, initial encounter Dehydration Condition: Stable Rubina Palacios [employer] Oct 07, 2016 19:23
[2016-10-07 19:39] LABS: ALKALINE PHOSPHATASE 80 U/L (45-117); ALT (GPT) 24 U/L (12-78); ANION GAP 7 MEQ/L (5-15); AST (GOT) 22 U/L (15-37); BICARBONATE 26.6 MEQ/L (21.0-32.0); BLOOD UREA NITROGEN 6 MG/DL (7-18); CHLORIDE 105 MEQ/L (98-107); GLOMERULAR FILTRATION RATE 96 ML/MIN (>89); POTASSIUM 4.2 MEQ/L (3.5-5.1); SODIUM (NA) 139 MEQ/L (136-145); TOTAL BILIRUBIN ADULT 0.4 MG/DL (0.2-1.0)
[2016-10-07 19:40] LABS: ACETAMINOPHEN LESS THAN 2.0 MCG/ML (10.0-30.0)
[2016-10-07 20:58] VITALS: BP 124/70; PULSE 72; RESP 18; O2SAT 100
[2016-10-07 22:28] VITALS: BP 124/77; PULSE 72; RESP 18; O2SAT 97
[2016-10-08 02:13] VITALS: BP 118/68; PULSE 75; RESP 18; O2SAT 97
[2016-10-08 06:00] VITALS: BP 109/56; PULSE 58; RESP 18; O2SAT 97
[2016-10-08] MEDS ORDERED: SULFAMETHOXAZOLE-TRIMETHOPRIM DS 800-160 MG TAB PO ONE (06:00)
--- NOTE | 2016-10-08 10:45 | PD ---
History of Present Illness Chief Complaint: Psychiatric Symptoms Time Seen by Provider: 10:30 Travel History International Travel<30 Days: No Contact w/Intl Traveler<30days: No Known affected area: No Legal Status Legal Status: Mccartney Act Mccartney Act Signed By: Chris Cannon Mccartney Act Comment: 2016 @ 1615 History of Present Illness: History of Present Illness HPI Patient is a 55-year-old male with history of alcohol dependence, personality disorder who was brought into the emergency Department under Mccartney act initiated by [employer] police. The report states that he was found in a parking of [employer] cutting himself. he stated to the police that he was sick of the world. When he presented to ED he was verbally abusive towards staff and physically threatening as well. He admitted to having consumed 4 beers and his BAL was 178. He was monitored in J pod until he was clinically sober and able to participate in evaluation. He did not engage in any self harming behavior while here. He is seen in J pod along with Nurse Radha. he is clinically sober. He is calm and cooperative. Speech is clear and logical. He states " I was a bit drunk and a bit angry and that's why I cut myself. Today I am happy. he denies any hallucinatory process. Patient had multiple superficial abrasions to his legs and arms. He tells me that he went to [facility] and that he was given medications but that he is not going to take any medication at all. PFSH Past Medical History Anxiety: Yes Depression: Yes Cancer: No Cardiovascular Problems: No COPD: Yes (Reports patient.) Diminished Hearing: No Gastrointestinal Disorders: No Genitourinary: No Implanted Vascular Access Dvce: No Musculoskeletal: No Neurologic: No Psychiatric: Yes (ANXIETY, DEPRESSION) Reproductive: No Respiratory: Yes Immunizations Current: Yes Past Surgical History Eye Surgery: Yes (STRABISMUS CORRECTION) Other Surgery: Yes (partial finger amputations on the left hand) Psychiatric History Psychiatric History Hx Psychiatric Treatment: Hx of depression and anxiety AND etoh. Patient with prior inpatienttreatment in [place], [facility].Admitted to [facility] in 2013. Multiple visits to Ed for ETOH related issues. Was hosp a few days ago after he overdosed on [place] after he became angry with a staff at [facility]. History of Inpatient Treatment: Yes Guns or firearms in home: No Social History Single male. Lives on a friend's porch so he is technically homeless . Unemployed. Hx Alcohol Use: Yes Hx Tobacco Use: Yes (2PPD + CIGARS) Hx Substance Use: Yes (alcohol abuse) Substance Use Type: Alcohol, Marijuana, Nicotine/Cigarettes Other Substances Used: 12 PPD Hx of Substance Use Treatment: Yes Family Psychiatric History None reported Allergies-Medications (Allergen,Severity, Reaction): Coded Allergies: *MDRO Multi-Drug Resistant Organism (Verified Adverse Reaction, Unknown, ) MRSA Arm Wound 09/23/16 MRSA PCR Positive 10/05/16 Codeine (Verified Adverse Reaction, Unknown, Nausea/Vomiting, 10/05/16) MRSA (arm) 09/23/16 Reported Meds & Prescriptions Reported Meds & Active Scripts Active Sulfamethoxazole-Trimethoprim 800-160 Mg Tab 1 Tab PO Q12HR Review of Systems Except as stated in HPI: all other systems reviewed are Neg Exam Alert: Yes [place]: Person (ox4) Mood: Calm Affect: Appropriate Speech: Clear, Logical Eye Contact: Normal Memory Intact: Comment (No impairmetn) Hallucinations: Other (Negative) Delusions: No Suicidal: Ideation (Denies any) Homicidal: Ideation (Deneis any) Insight/Judgement Poor. Poor. [facility] Medical Decision Making Medical Record Reviewed: Yes Assessment/Plan 55 year old with history of alcohol dependence, personality disorder who presents to ED on BA after he was found in a parking lot superficially cutting his arms and legs. He denies that this was a suicide attempt and has a documented hx of engaging in self injurious behavior. He does not present any active suicidal ideation and is requesting discharge. At this time he does not meet BA criteria. His reported and documented history of repeated attempts at self-injury likely stem from the reckless disregard for safety of self and impulsivity associated with the antisocial personality and not from suicidality. He presents a chronic risk of harming himself associated with his substance use as well as his personality disorder. He is counseled regarding alcohol use as well as treatment options including [facility]. Orders Complete Blood Count With Diff (10/07/16 18:28) Comprehensive Metabolic Panel (10/07/16 18:28) Urinalysis - C+S If Indicated (10/07/16 18:28) Psych Screen (10/07/16 18:28) [place] (Li) (10/07/16 18:28) Drug Screen, Random Urine (10/07/16 18:28) Alcohol (Ethanol) (10/07/16 18:28) Salicylates (Aspirin) (10/07/16 18:28) Tylenol (Acetaminophen) (10/07/16 18:28) Lorazepam Inj (Ativan Inj) (10/07/16 18:45) Haloperidol Inj (Haldol Inj) (10/07/16 18:45) Diphenhydramine Inj (Benadryl Inj) (10/07/16 18:45) Restraints Violent (10/07/16 20:40) Diet Regular Basic (10/08/16 Breakfast) Sulfamet-Trimeth Ds 800-160 Mg (Bactrim (10/08/16 06:00) Results Vital Signs Date Time Temp Pulse Resp B/P Pulse Ox O2 Delivery O2 Flow Rate FiO2 10/08/16 06:00 58 18 109/56 97 Room Air 10/08/16 02:13 75 18 118/68 97 Room Air 10/07/16 22:28 72 18 124/77 97 Room Air 10/07/16 20:58 72 18 124/70 100 Room Air 10/07/16 17:27 98.6 76 16 119/64 96 Laboratory Tests Test 10/07/16 10/07/16 18:31 20:44 White Blood Count 13.5 Red Blood Count 4.43 Hemoglobin 13.4 Hematocrit 39.7 Mean Corpuscular Volume 89.5 Mean Corpuscular Hemoglobin 30.2 Mean Corpuscular Hemoglobin 33.8 Concent Red Cell Distribution Width 14.8 Platelet Count 198 Mean Platelet Volume 8.1 Neutrophils (%) (Auto) 69.3 Lymphocytes (%) (Auto) 23.3 Monocytes (%) (Auto) 5.5 Eosinophils (%) (Auto) 1.2 Basophils (%) (Auto) 0.7 Neutrophils # (Auto) 9.4 Lymphocytes # (Auto) 3.2 Monocytes # (Auto) 0.7 Eosinophils # (Auto) 0.2 Basophils # (Auto) 0.1 CBC Comment DIFF FINAL Differential Comment Urine Color LIGHT-YELLOW Urine Turbidity CLEAR Urine pH 6.0 Urine Specific [place] 1.003 Urine Protein NEG Urine Glucose (UA) NEG Urine Ketones NEG Urine Occult Blood SMALL Urine Nitrite NEG Urine Bilirubin NEG Urine Urobilinogen LESS THAN 2.0 Urine Leukocyte Esterase NEG Urine RBC LESS THAN 1 Urine WBC LESS THAN 1 Microscopic Urinalysis Comment CULT NOT INDICATED Sodium Level 139 Potassium Level 4.2 Chloride Level 105 Carbon Dioxide Level 26.6 Anion Gap 7 Blood Urea Nitrogen 6 Creatinine 0.84 Estimat Glomerular Filtration 96 Rate Random Glucose 87 Calcium Level 9.4 Total Bilirubin 0.4 Aspartate Amino Transf 22 (AST/SGOT) Alanine Aminotransferase 24 (ALT/SGPT) Alkaline Phosphatase 80 Total Protein 7.4 Albumin 3.8 Salicylates Level 1.9 Urine Opiates Screen NEG Acetaminophen Level LESS THAN 2.0 Urine Barbiturates Screen NEG Urine Amphetamines Screen NEG Urine Benzodiazepines Screen NEG Urine Cocaine Screen NEG Urine Cannabinoids Screen NEG Ethyl Alcohol Level 178 [place] Level 0.3 Diagnosis Primary Impression: Alcohol intoxication Additional Impression: Alcohol dependence Psychiatrically Cleared: Yes Med/ Other Pt Specific Info: No Meds Exist/No RX given Disposition: 01 DISCHARGE HOME Condition: Stable Problem Qualifiers Primary Impression: Alcohol intoxication Qualified Code: F10.920 - Alcohol intoxication, uncomplicated NewmanJuveSunshinejosé luis Centeno [facility] Oct 08, 2016 10:45
[2016-10-08 10:49] VITALS: BP 135/69; PULSE 77; RESP 18; TEMP 98.9; O2SAT 98
== END 2016-10-08 12:09 | disposition home or self-care (01) ==
LOC: NEDAMB 17:06 → NEPJ 10-08 12:09
DX: F10.229 Alcohol dependence with intoxication, unspecified (principal); F60.9 Personality disorder, unspecified; S41.012A Laceration without foreign body of left shoulder, initial encounter; J44.9 Chronic obstructive pulmonary disease, unspecified; F41.9 Anxiety disorder, unspecified; F32.9 Major depressive disorder, single episode, unspecified; F17.290 Nicotine dependence, other tobacco product, uncomplicated; Z79.899 Other long term (current) drug therapy; X78.9XXA Intentional self-harm by unspecified sharp object, initial encounter
CPT/HCPCS: 12002; 80053; 80178; 80307; 81001; 85025; 96372; 99285; J1200; J1630; J2060